=== PATIENT | female | born 1965 | race Two or more races ===

== ENCOUNTER → 2020-03-30 15:01 | Outpatient (BNVA) | payer MEDICAID, SELFPAY | PROVIDERS: PCP Internal Medicine; Visit Provider Nurse Practitioner Family ==

== ENCOUNTER → 2020-05-13 09:17 | Outpatient (BNVA) | payer MEDICAID, SELFPAY | PROVIDERS: PCP Internal Medicine; Visit Provider Internal Medicine Cardiovascular Disease | DX: R00.2 Palpitations (principal); R07.2 Precordial pain | CPT/HCPCS: 93005; 99212 ==

== ENCOUNTER 2020-05-17 06:24 | Day surgery (SDC) | payer MEDICAID, SELFPAY ==
[2020-05-17 06:44] VITALS: BMI 21.9
[2020-05-17 07:08] VITALS: BMI 21.9
[2020-05-17 07:19] VITALS: BP 117/78; PULSE 72; RESP 16; TEMP 36.3; O2SAT 94
--- NOTE | 2020-05-17 07:19 | P.CONAN_ITS ---
FORMERLY [facility] Active Problems Active Problems: All Active Problems (Updated 05/13/20 @ 10:18 by Horacio sharif MD) Chest pain (Acute) Palpitations (Acute) Past Medical History Medical History GERD (gastroesophageal reflux disease) Hypothyroidism (acquired) Family History Family History Mother HX: breast cancer Father Hx of malignant neoplasm of nasal cavity Sister No problems noted. Surgical History Surgical History Hx of appendectomy Hx of hysterectomy Social History Social History Household Members: Spouse Alcohol intake: current Alcohol intake frequency: holidays/special occasions only Smoking Status: Current every day smoker Tobacco Type: Cigarette Packs Per Day: 0.25 Cigarettes Per Day: 5.0 Years Smoked: 27 Smoked in Last 30 Days: Yes Patient Interested in Nicotine Replacement: No Patient Given Instructions on How to Stop Smoking: No Second Hand Smoke Exposure: Yes Use of substances other than those prescribed or required for medical reasons: Yes Substance Use Type: Marijuana Advance Directives: No Advance Directives Information Provided: Yes Current occupational status: disabled Meds Allergies Allergy/AdvReac Type Severity Reaction Status Date / Time aspirin [ASPIRIN] Allergy Unknown SWELLING, Unverified 03/30/20 15:03 rash, swelling ibuprofen Allergy Unknown swelling Verified 03/30/20 15:03 Home Medications Medication Instructions Recorded Confirmed Last Taken Type acetaminophen 650 mg 650 mg PO Q8H 03/30/20 03/30/20 Unknown History tablet,extended release citalopram 10 mg tablet 10 mg PO DAILY 03/30/20 03/30/20 Unknown History cyclobenzaprine 10 mg tablet 10 mg PO TID 03/30/20 03/30/20 Unknown History levothyroxine 25 mcg capsule 25 mcg PO DAILY 03/30/20 03/30/20 Unknown History mirtazapine 45 mg tablet 45 mg PO BEDTIME 03/30/20 03/30/20 Unknown History pantoprazole 20 mg tablet,delayed 20 mg PO DAILY 03/30/20 03/30/20 Unknown History release quetiapine 50 mg tablet 50 mg PO BEDTIME 03/30/20 03/30/20 Unknown History Exam Exam Date and Time: May 17, 2020718 Height,Weight and Vital Signs: Height 5 ft 2 in Weight 54.431 kg Airway Mallampati Class: II TM Dist: >3cm Neck ROM: Full Denture: Upper and Lower Loose/Missing/Broken Teeth: Yes, Upper and Lower Heart: RRR Lungs: CTA Assessment and Plan Assessment Anesthesia Assessment: Anesthesia Plan Discussed and Chart Reviewed Final Anesthetic Review NPO: Yes ASA Class: II Final Preanesthetic Review: Meds/Allgs Chart Reviewed, Consent Obtained/Reviewed and Anes Risks/Benef Reviewed Patient Risk: Low Procedure Risk: Low Anesthetic Plan Anesthetic Plan: MAC: Disposition: Standard PACU
--- NOTE | 2020-05-17 07:24 | P.HPSUR_ITS ---
Pre-Procedural Eval Section A The patient is an INPATIENT: No The History & Physical has been completed within 30 days and I have reviewed it.: No Section B Chief Complaint: Screening Details of Present Illness: 54 year old female here today for pre colonoscopy screening. Patient was sent to us by her PCP. This is her first colonoscopy screening. Patient denies any gastrointestinal symptoms in the past or at present. Denies any personal or family history of gastrointestinal disease, colon polyps, or cancer. Relevant Social History: Other (specify) (Smokes marijuana) Present Medications: see Short Stay Collaborative assessment Medical History: Significant History (GERD (gastroesophageal reflux disease) Hypothyroidism (acquired)) History of Previous Operations: Relevant previous surgery/procedure and date(s) (History of appendicectomy, history of hysterectomy.) Allergies: Allergies Allergy/AdvReac Type Severity Reaction Status Date / Time aspirin [ASPIRIN] Allergy Unknown SWELLING, Unverified 03/30/20 15:03 rash, swelling ibuprofen Allergy Unknown swelling Verified 03/30/20 15:03 Review of Systems Sugical H&P ROS: Negative: Constitution, Cardiovascular, Respiratory and Gastroi ntestinal Exam Surgical H&P Exam: Normal: Heart, Normal: Lungs, Normal: Extremities and Normal: Abdomen Plan Diagnosis/Plan: Unchanged I have reviewed the history and physical and performed a pertinent physical examination on my patient. No changes have occurred unless specified.
--- NOTE | 2020-05-17 07:24 | P.OP_ITS ---
Operative Note Operative Note Date of Service: 05/21/20 Narrative: Pre-op diagnosis: colon cancer screening Post-op diagnosis: other (Colon polyps, diverticulosis, hemorrhoids, AVM) Procedure: COLONOSCOPY TILL CECUM WITH SNARE POLYPECTOMY Consent: Indications for the procedure and potential complications of bleeding, perforation, reaction to medications and missed diagnosis were discussed with the patient and informed consent was obtained. Instrument: Olympus PCF H 190 L variable stiffness pediatric colonoscope Monitoring: Vital signs and clinical assessment, intermittent blood pressure monitoring, continuous EKG monitoring, Pulse oximetry and Carbon Dioxide monitoring were done throughout the procedure. Colon withdrawl time was 27 minutes. Procedure: The patient was placed in the left lateral decubitis position and pre-procedure medications were administered. After a digital rectal examination of the ano-rectum, the video colonoscope was inserted into the rectum and advanced through the colon to the cecum. The colonoscope was slowly withdrawn in a retrograde panoramic fashion and the colon mucosa was carefully examined including a retroflexed view of the rectum. Findings and interventions are described below. Procedure Difficulty: Without difficulty Findings: Terminal Ileum: Not evaluated Cecum: Normal Ascending Colon: A 1 cms non-bleeding AVM in the proximal AC. Transverse Colon: A 10 mm sessile polyp removed with a cold snare. A 5-6 mm sessile polyp removed with a cold snare. Descending Colon: Normal Sigmoid Colon: Moderate diverticulosis Rectum: Normal Ano-rectum: Small internal hemorrhoids and perianal skin tags. Colon preparation: Good after copious irrigation Impression and Post Procedure Diagnosis: Colonoscopy Findings: Two 5-10 mm polyps removed Moderate diverticulosis seen in the sigmoid colon Small hemorrhoids on retroflexed exam. Plan: Await pathology results Patient has an appointment on 06/07/20 in the [facility] with Jenifer Hammer FNP- [facility]. Repeat Colonoscopy interval based on path results - in 3-5 years if polyps are adenomatous and 10 years if polyps are hyperplastic. Above findings were reviewed with the patient and colon polyps and dive rticulosis handouts were given in the discharge area Surgeon: Jacob Sharif MD Anesthesia: MAC (Dr Echeverria) Estimated blood loss (mL): 0 Pathology: other (A. TC polyps x 2) Condition: stable Disposition: PACU
[2020-05-17] MEDS: Lactated Ringers 1,000 ML 50 ML IV (07:43)
[2020-05-17 08:30] VITALS: BP 127/78; PULSE 79; RESP 18; TEMP 35.9; O2SAT 98
[2020-05-17 08:45] VITALS: BP 139/76; PULSE 74; RESP 16; O2SAT 96
--- NOTE | 2020-05-17 08:58 | PC.NURSE ---
[id number] MONITORS AND IVF DC ASST OOB STEADY IV DC DRESSED SELF AT BS CALL [facility] IN REACH PLAN AMB TO DC AREA
== END 2020-05-17 09:32 | disposition home or self-care (01) ==
PROVIDERS: PCP Internal Medicine; Visit Provider Internal Medicine Gastroenterology
PROC: 0DJD8ZZ Inspection of Lower Intestinal Tract, Via Natural or Artificial Opening Endoscopic (ICD-10-PCS; CPT 45378; principal; 2020-05-17 07:30)
DX: Z12.11 Encounter for screening for malignant neoplasm of colon (principal); D12.3 Benign neoplasm of transverse colon; K57.30 Diverticulosis of large intestine without perforation or abscess without bleeding; K55.20 Angiodysplasia of colon without hemorrhage; K64.8 Other hemorrhoids; K64.4 Residual hemorrhoidal skin tags; K21.9 Gastro-esophageal reflux disease without esophagitis; F17.210 Nicotine dependence, cigarettes, uncomplicated; Z79.899 Other long term (current) drug therapy; Z88.8 Allergy status to other drugs, medicaments and biological substances
CPT/HCPCS: 45385; 88305

== ENCOUNTER → 2020-05-24 14:39 | Outpatient (REF) | payer MEDICAID, SELFPAY ==
--- NOTE | 2020-05-24 11:45 | ECG_ITS ---
Hook-up date: 2020-05-24 15:09:00 Duration: 47:59:00 Test Indications: PALPITATIONS Medications: [id number] QRS complexes 8 Ventricular ectopics which represent <1 % of total QRS comp. 13 Supraventricular ectopics which represent <1 % of total QRS comp. * Paced QRS complexs which represent % of total QRS comp. VENTRICULAR ECTOPY 8 Isolated 0 Bigeminal Cycles 0 Couplets 0 Runs 0 Beats in Runs * Beats LONGEST at * BPM at :: -- * Beats FASTEST at * BPM at :: -- SUPRAVENTRICULAR ECTOPY 7 Isolated 0 Couplets 1 Runs 6 Beats in Runs 6 Beats LONGEST at 139 BPM at 02:50:05 2020-05-26 6 Beats FASTEST at 139 BPM at 02:50:05 2020-05-26 HEART RATES 55 MIN at 08:22:03 2020-05-26 89 AVG 163 MAX at 16:32:34 2020-05-24 LONGEST RR 1.1520 secs at 08:43:25 2020-05-26 S-T LEVELS Channel 1 - 128 mm at 15:09:00 2020-05-24 - 128 mm at 15:09:00 2020-05-24 Channel 2 - 128 mm at 15:09:00 2020-05-24 - 128 mm at 15:09:00 2020-05-24 Channel 3 - 128 mm at 03:42:81 -- - 128 mm at 03:42:81 Underlying rhythm is sinus; Average rate 89/min; About 28% of the time, rate >100min; Very rare PACs/PVCs; Some strips with artifact are likely sinus tachycardia; Baseline bundle branch block seems to resolve at slower heart rates; Patient did not report any symptoms in the diary Referred By: Horacio Mckeon Overread By: BRENDA FIGUEROA
== END ==
LOC: HO.CARD 14:39
PROVIDERS: PCP Internal Medicine; Visit Provider Internal Medicine Cardiovascular Disease
DX: R00.2 Palpitations (principal)
CPT/HCPCS: 93226

== ENCOUNTER → 2020-06-07 13:00 | Outpatient (BNVA) | payer MEDICAID, SELFPAY | PROVIDERS: PCP Internal Medicine; Visit Provider Nurse Practitioner Family ==

== ENCOUNTER 2021-12-30 08:06 | Outpatient (REF) | payer MEDICAID, SELFPAY ==
--- NOTE | ~2021-12-30 | MM_ITS ---
EXAMINATION: MM SCREENING DIGITAL BREAST TOMOSYNTHESIS, BILATERAL CLINICAL INFORMATION: Screening. Asymptomatic. The lifetime risk of breast cancer based on the Tyrer-Cuzick Model is 8.7%. COMPARISON: Mammography: September 04, 2019 and studies dating back to December 01, 2010 TECHNIQUE: Digital breast tomosynthesis is performed in both the craniocaudal and mediolateral oblique views along with computer-aided detection (CAD). Synthesized 2D images are generated from the tomosynthesis. FINDINGS: The breasts are heterogeneously dense, which may obscure small masses (ACR BI-RADS breast composition Category c). There are no significant masses, abnormal calcifications, or other abnormalities. MM/MM tomosynthesis screening BI IMPRESSION: No significant changes from prior exam. ASSESSMENT: BI-RADS 1: Negative RECOMMENDATION: Routine annual mammography screening. This patient's information was entered into a reminder system with a target due date for their next mammogram.
== END 2021-12-30 08:07 | disposition home or self-care (01) ==
LOC: HO.MAMMO 08:06
PROVIDERS: PCP Internal Medicine; Visit Provider Internal Medicine
DX: Z12.31 Encounter for screening mammogram for malignant neoplasm of breast (principal)
CPT/HCPCS: 77063; 77067

== ENCOUNTER 2022-08-11 15:01 | Outpatient (REF) | payer MEDICAID, SELFPAY ==
--- NOTE | ~2022-08-11 | XR_ITS ---
EXAMINATION: 1. RADIOGRAPHS LUMBAR SPINE 2. RADIOGRAPHS SACRUM/COCCYX CLINICAL INFORMATION: Low back pain COMPARISON: Sacrum/coccyx radiographs April 14, 2014 and lumbar spine x-rays April 23, 2012 TECHNIQUE: 3 views of the lumbar spine and 2 views of the sacrum/coccyx were obtained. FINDINGS: 5 nonrib-bearing lumbar vertebral bodies are visualized. Similar minimal anterolisthesis of L5 on S1. Alignment is otherwise unremarkable. Lumbar vertebral body heights are maintained. There is mild narrowing of the L4/5 and L5/S1 disc space heights. No gross fracture of the sacrum or coccyx. Sacroiliac joints are symmetric. The pelvic ring is intact. Small pelvic calcifications are likely vascular in nature. Surgical clips and anastomotic suture line project over the right lower abdomen. XR/XR sacrum coccyx min 2V IMPRESSION: 1. Mild degenerative changes of the lower lumbar spine. No compression deformity. 2. No fracture of the sacrum or coccyx.
--- NOTE | ~2022-08-11 | XR_ITS ---
EXAMINATION: 1. RADIOGRAPHS LUMBAR SPINE 2. RADIOGRAPHS SACRUM/COCCYX CLINICAL INFORMATION: Low back pain COMPARISON: Sacrum/coccyx radiographs April 14, 2014 and lumbar spine x-rays April 23, 2012 TECHNIQUE: 3 views of the lumbar spine and 2 views of the sacrum/coccyx were obtained. FINDINGS: 5 nonrib-bearing lumbar vertebral bodies are visualized. Similar minimal anterolisthesis of L5 on S1. Alignment is otherwise unremarkable. Lumbar vertebral body heights are maintained. There is mild narrowing of the L4/5 and L5/S1 disc space heights. No gross fracture of the sacrum or coccyx. Sacroiliac joints are symmetric. The pelvic ring is intact. Small pelvic calcifications are likely vascular in nature. Surgical clips and anastomotic suture line project over the right lower abdomen. XR/XR lumbar spine 2-3V IMPRESSION: 1. Mild degenerative changes of the lower lumbar spine. No compression deformity. 2. No fracture of the sacrum or coccyx.
--- NOTE | ~2022-08-11 | US_ITS ---
EXAMINATION: US SOFT TISSUE NECK CLINICAL INFORMATION: Left neck mass. COMPARISON: None available. TECHNIQUE: Ultrasound of the neck soft tissues is performed with high- frequency boudreaux-scale imaging and color Doppler. FINDINGS: THYROID BED: The left submandibular gland appears somewhat enlarged measuring 3.5 x 2.0 x 3.0 cm. There is ductal dilatation, without focal sialolith noted. There are left submandibular lymph nodes measuring 1.2 x 0.8 x 0.8 cm and 0.7 x 0.5 x 0.5 cm. No sizable lymphadenopathy is noted. US/US soft tiss head and/or neck IMPRESSION: The left submandibular gland is somewhat prominent and shows ductal dilatation. No sialolith or mass lesion is noted. Consider further evaluation with contrast-enhanced CT examination of the soft tissues of the neck. No sizable lymphadenopathy is seen.
== END 2022-08-11 15:02 | disposition home or self-care (01) ==
LOC: HO.US 15:01
PROVIDERS: Visit Provider Emergency Medicine
DX: R22.1 Localized swelling, mass and lump, neck (principal); M54.50 Low back pain, unspecified; Z87.81 Personal history of (healed) traumatic fracture
CPT/HCPCS: 72100; 72220; 76536

== ENCOUNTER 2022-10-03 09:56 | Outpatient (REF) | payer MEDICAID, SELFPAY ==
--- NOTE | ~2022-10-03 | CT_ITS ---
EXAMINATION: CT SOFT TISSUE NECK WITH CONTRAST CLINICAL INFORMATION: Localized swelling, mass and lump, neck COMPARISON: None. TECHNIQUE: Following the administration of 60 mL of Omnipaque 350 intravenous contrast, helical imaging was performed in the axial plane with generation of coronal and sagittal reformatted images. This CT examination was performed using dose optimization techniques as appropriate, variously including the following: *Automated exposure control. *Adjustment of mA and/or kV according to patient size (this includes techniques or standardized protocols for targeted exams where dose is matched to indication/reason for exam; i.e. extremities or head). *Use of iterative reconstruction technique. DLP: 501.21 mGy-cm FINDINGS: Metallic skin marker is noted superficial to the left submandibular gland. There is asymmetric enlargement and hyperenhancement of the left submandibular gland with suggestion of mild sialectasis and surrounding inflammatory fat stranding in the submandibular space. 5 mm hyperdensity in the left floor of mouth likely represents a sialolith along the submandibular duct. The left sublingual gland also appears mildly enlarged and hyperenhancing, likely reflecting sialoadenitis. Nasopharynx/skull base: The fat planes of the skull base are unremarkable. There is a 1.1 cm cyst within the midline nasopharyngeal soft tissues, compatible with a Tornwaldt cyst. The paranasal sinuses and mastoid air cells are well aerated. Left jessica bullosa.Moderate to severe degenerative changes of the temporomandibular joints. Suprahyoid neck: The oropharynx, oral cavity, and parotid glands are unremarkable. Infrahyoid neck: The hypopharynx and larynx are unremarkable. No aerodigestive tract mass. Thyroid: The thyroid gland is normal. Lymph nodes: There is no cervical chain lymphadenopathy. Lung apices: Mild pleural-parenchymal scarring at the lung apices. Mild bronchial wall thickening Vascular structures: No hemodynamically significant stenosis, dissection, or occlusion. Osseous structures: The osseous structures are intact without suspicious focal lesion. Other: The imaged portions of the brain parenchyma are unremarkable. CT/CT soft tissue neck w IV con IMPRESSION: 1. Findings compatible with left submandibular and sublingual gland sialoadenitis with 5 mm sialolith in the left floor of mouth. 2. 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 3. Moderate to severe degenerative changes of the temporomandibular joints.
[2022-10-03] MEDS: iohexoL 350 MG/ML 100 ML INFUS..BTL 60 ML IV (10:38)
[2022-10-04 11:12] LABS: Creatinine POC 0.9 mg/dL (0.5-1.4); GFR POC > 60
== END 2022-10-03 09:57 | disposition home or self-care (01) ==
LOC: HO.CT 09:56
PROVIDERS: PCP Emergency Medicine; Visit Provider Emergency Medicine
DX: R22.1 Localized swelling, mass and lump, neck (principal)
CPT/HCPCS: 70491; 82565; Q9967

== ENCOUNTER 2022-12-10 15:23 | Emergency (ER) | payer MEDICAID, SELFPAY ==
--- NOTE | ~2022-12-10 | CT_ITS ---
EXAMINATION: CT SOFT TISSUE NECK WITHOUT CONTRAST CLINICAL INFORMATION: Left submandibular/subglossal swelling COMPARISON: CT neck 10/03/2022 TECHNIQUE: Noncontrast helical imaging was performed in the axial plane with generation of coronal and sagittal reformatted images. This CT examination was performed using dose optimization techniques as appropriate, variously including the following: *Automated exposure control. *Adjustment of mA and/or kV according to patient size (this includes techniques or standardized protocols for targeted exams where dose is matched to indication/reason for exam; i.e. extremities or head). *Use of iterative reconstruction technique. DLP: 128 FINDINGS: Since 10/03/2022, progressive diffuse enlargement of the left submandibular gland with increased mass effect and flattening along the ventral margin of the subjacent left sternocleidomastoid muscle. Increased inflammatory stranding within the left greater than right submandibular triangles and submental region. Increased thickening of the left greater than right platysma muscles. New somewhat hazy appearance/mild infiltration of the left parapharyngeal fat. Unchanged 5 mm calcified sialolith along the left floor of mouth along the expected course of the left Lyla's duct. Redemonstrated enlargement of the left sublingual gland with likely increased effacement/edema of the left floor of mouth fat planes. Lack of postcontrast technique precludes assessment for floor of mouth abscess. There is asymmetric soft tissue fullness of the left palatine tonsillar tissue (image 38, series 2), which may reflect asymmetric tonsillar hyperplasia. Stable enlarged left level IIa lymph node measuring 1.3 cm in long axis and additional nonpathologic size criteria submandibular/submental lymph nodes.. 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 Left contrast bullosa. The paranasal sinuses and mastoid air cells are well aerated. 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 The unenhanced aerodigestive tract is unremarkable. No radiopaque foreign bodies identified. The unenhanced thyroid and bilateral parotid glands are normal. Mild biapical pleural-parenchymal scarring centrilobular/paraseptal emphysema with mild central bronchial wall thickening which may reflect small airways disease/bronchiolitis. Stable mild cervical spondylosis. No suspicious osseous lesion. The imaged portions of the brain parenchyma are unremarkable. CT/CT soft tissue neck wo IV con IMPRESSION: Within limitations of noncontrast technique, findings are suggestive of worsening acute left submandibular and sublingual gland sialoadenitis with 5 mm calcified sialolith along the left floor of mouth along the expected course of the left Croydon's duct. Increased inflammatory stranding/cellulitic changes throughout the neck, including new subtle infiltration of the left parapharyngeal fat. Increased left floor of mouth edema/cellulitis. Lack of postcontrast technique precludes assessment for floor of mouth abscess. Stable presumably reactive left level 2A lymph node and additional nonpathologic size criteria submandibular/submental lymph nodes. Findings were discussed with Dr Al at 6:00 PM on 12/10/2022.
--- NOTE | 2022-12-10 15:44 | ED_ITS ---
HPI - General Adult General Chief complaint: Dental/Oral Stated complaint: surgery 12/04 mouth pain Time Seen by Provider: 12/10/22 16:15 Source: patient Mode of arrival: ambulatory Limitations: no limitations History of Present Illness HPI narrative: 57 yo female with PMH of GERD, anxiety, depression, hypothyroidism here with c/o L sided facial pain and swelling x 3 months has been seeing ENT at [facility] was scheduled for removal on 12/04 but it was canceled due to COVID exposure. She came in today as she c/o more pain since Sunday. She notes the swelling on the jaw seems worse but not the neck. She states she has to call tomorrow to reschedule appointment she has not done that yet. MD complaint: jaw pain Onset (ago): month(s) (3) Location: mouth Radiation: non-radiation Severity: moderate Related Data Home Medications Medication Instructions Recorded Confirmed acetaminophen 650 mg 650 mg PO Q8H 03/30/20 03/30/20 tablet,extended release (Arthritis Pain Relief (acetaminophen) ER) citalopram 10 mg tablet 10 mg PO DAILY 03/30/20 03/30/20 cyclobenzaprine 10 mg tablet 10 mg PO TID 03/30/20 03/30/20 levothyroxine 25 mcg capsule 25 mcg PO DAILY 03/30/20 03/30/20 mirtazapine 45 mg tablet 45 mg PO BEDTIME 03/30/20 03/30/20 pantoprazole 20 mg tablet,delayed 20 mg PO DAILY 03/30/20 03/30/20 release quetiapine 50 mg tablet (Seroquel) 50 mg PO BEDTIME 03/30/20 03/30/20 Previous Rx's Medication Instructions Recorded amoxicillin 875 mg-potassium 1 tab PO BID #14 tabs 12/10/22 clavulanate 125 mg tablet morphine 15 mg immediate release 15 mg PO Q6H PRN pain #14 tabs 12/10/22 tablet Allergies Allergy/AdvReac Type Severity Reaction Status Date / Time aspirin [ASPIRIN] Allergy Mild SWELLING, Verified 12/10/22 15:50 rash, swelling Review of Systems 2 Review of Systems: Constitutional : No Fever, No Chills ENT/Mouth : No swallowing difficulty, no change in voice, positive dental pain, positive jaw pain, positive facial swelling Eyes: No Eye Pain, No Swelling Cardiovascular : No Chest Pain, No SOB Respiratory : No Cough, No Sputum Gastrointestinal : No Nausea, No Vomiting, No Diarrhea Genitourinary : No Dysuria Musculoskeletal : No Myalgias Skin : No rash Neuro : No Weakness, No Numbness, No Headache All other systems reviewed and are negative [facility] Past Medical History Medical History (Updated 12/10/22 @ 18:56 by Priya Jarvis DO) Tubular adenoma Hypothyroidism (acquired) GERD (gastroesophageal reflux disease) Surgical History (Updated 06/07/20 @ 13:04 by KARLA Joy) H/O colonoscopy Hx of appendectomy Hx of hysterectomy Family History Family History Mother HX: breast cancer Father Hx of malignant neoplasm of nasal cavity Sister No problems noted. Social History Social History (Updated 06/07/20 @ 13:05 by KARLA Joy) Household Members: Spouse Alcohol intake: current Alcohol intake frequency: does not drink Cigarettes Per Day: 7 Years Smoked: 27 Second Hand Smoke Exposure: Yes Substance Use Type: Marijuana Advance Directives: No Advance Directives Information Provided: No Current occupational status: disabled Physical Exam ED Vital Signs: Vital Signs - 24 hr 12/10/22 15:47 Temperature 98 F Pulse Rate 91 Respiratory Rate 20 Blood Pressure 132/80 Pulse Oximetry 99 Oxygen Delivery Method Room Air BMI result Body Mass Index 21.6 Appearance: Alert. Oriented X3. No acute distress. Eyes: Pupils equal, round and reactive to light. ENT: Pharynx L sided parotid and sublingual area is swollen and elevated but no trismus and no drooling or stridor, L parotid is swollen but no external erythema or warmth, firm ball submandibular area (she states this has been present x 3 months) Neck: Normal inspection. Neck supple. CVS: Normal heart rate and rhythm. Pulses normal. Respiratory: No respiratory distress. Breath sounds normal. Abdomen: Soft and nontender. Skin: Skin warm and dry. Normal skin color. Normal skin turgor. Extremities: No lower extremity edema. No calf ttp Neuro: Oriented X 3. No motor deficit. No sensory deficit. Course Course Course Narrative: RME - 57 yo Dominican speaking female who was due to left submandibular gland removal on 12/04 at [facility] (never did due to COVID exposure) who presents with worsening pain in the left submandibular area, subglossal area making it hard to eat, sleep. Has never been this painful, acutely worsened yesterday with increased swelling. Tearful in triage. Visible swelling in the left submandibular area. Plan: labs, CT scan, treat pain, try to get records from [facility] Reevaluation(s) Reevaluation #1: worsening sialoadenitis increasing edema in neck spaces and cellulitis Medications Administered Discontinued Medications Generic Name Dose Route Start Last Admin Trade Name Calli PRN Reason Stop Dose Admin Piperacillin Sod/Tazobactam 50 mls @ 100 mls/hr 12/10/22 18:17 12/10/22 18:29 Sod 3.375 gm/ Sodium Chloride IV 12/10/22 18:46 100 mls/hr ONCE ONE Administration Lorazepam 1 mg 12/10/22 17:11 12/10/22 17:16 Lorazepam 1 Mg Tablet PO 12/10/22 17:12 1 mg ONCE ONE Administration Morphine Sulfate 4 mg 12/10/22 15:47 12/10/22 16:47 Morphine Sulfate 4 Mg/Ml Cartridge IVPUSH 12/10/22 15:48 Not Given ONCE ONE Protocol Morphine Sulfate 15 mg 12/10/22 16:34 12/10/22 16:46 Morphine Sulfate Immed Release 15 Mg Tablet PO 12/10/22 16:35 15 mg ONCE ONE Administration Morphine Sulfate 4 mg 12/10/22 18:02 12/10/22 18:21 Morphine Sulfate 4 Mg/Ml Cartridge IVPUSH 12/10/22 18:03 4 mg ONCE ONE Administration Protocol Ondansetron HCl 4 mg 12/10/22 15:47 12/10/22 16:47 Ondansetron Hcl 4 Mg/2 Ml Vial IVPUSH 12/10/22 15:48 Not Given ONCE ONE Ondansetron HCl 4 mg 12/10/22 18:02 12/10/22 18:21 Ondansetron Hcl 4 Mg/2 Ml Vial IVPUSH 12/10/22 18:03 4 mg ONCE ONE Administration Medical Decision Making Medical Decision Making MDM Narrative: 57 yo female with PMH of GERD, anxiety, depression, hypothyroidism with 3 months of L neck mass finally to have surgery at [facility] on 12/04 but had COVID exposure so it was canceled she has not rescheduled she comes today with c/o L sided jaw pain and feels it is swollen at the jaw (neck and submandibular space is not change) she tells me she has not had a biopsy yet. She is not on antibiotics and she cannot take the pain anymore. She is not using anything to produce saliva. She has no fevers, change in voice, diff breathing. At times it hurts to swallow. Differential Diagnosis Differential Diagnoses: The differential diagnosis associated with the presentation includes mass, sialoadenitis Admission/Observation Consideration of admission/observation: Escalation of care including admission/observation considered no airway issues not toxic can be managed with outpatient oral antibiotics and pain medications Consult Healthcare Provider Management of the patient was discussed with: Director Sports (Dr. Beck massage posterior to anterior follow up with disc tomorrow 1045 am) Lab Data MDM Lab Attestation statement: I reviewed the patient's lab results. 12/10/22 15:53 12/10/22 15:53 Labs: Lab Results 12/10/22 12/10/22 Range/Units 15:53 18:09 WBC 11.3 H (4.8-10.8) X10*3/uL RBC 4.50 (4.20-5.50) X10*6/uL Hgb 13.5 (12.0-16.0) g/dl Hct 39.2 (37.0-47.0) % MCV 87.1 (80.0-98.0) fL MCH 30.0 (27.0-33.0) pg MCHC 34.4 (31.0-35.0) g/dl RDW 13.6 (11.0-16.0) % Plt Count 365 (160-400) X10*3/uL MPV 9.6 (9.4-12.3) fL Immature Gran % (Auto) 0.4 (0.0-0.4) % Neut % (Auto) 62.2 (45-73) % Lymph % (Auto) 29.2 (20-40) % [place] % (Auto) 6.5 (2-11) % Eos % (Auto) 1.0 (0-4) % Baso % (Auto) 0.7 (0-2) % Lymph # (Auto) 3.3 (1.2-4.9) X10*3/uL [place] # (Auto) 0.7 (0.1-1.2) X10*3/uL Eos # (Auto) 0.1 (0.0-0.4) X10*3/uL Baso # (Auto) 0.1 (0.0-0.2) X10*3/uL Abs Immat Gran (auto) 0.04 H (0.00-0.03) X10*3/uL Absolute Neuts (auto) 7.0 (2.0-8.3) x10*3/uL Absolute Nucleated RBC 0.000 (0.0-0.012) X10*3/uL Nucleated RBC % (auto) 0.0 (0.0-0.2) /100WBC Sodium 139 (135-145) mmol/L Potassium 4.2 (3.3-5.1) mmol/L Chloride 104 (96-108) mmol/L Carbon Dioxide 22 (22-29) mmol/L Anion Gap 17 (12-20) BUN 9 (9-16) mg/dL Creatinine 0.75 (0.5-1.4) mg/dL Estim Creat Clear Calc 65.5 Estimated GFR > 60 Random Glucose 98 (60-115) mg/dL Calcium 10.6 H (8.4-10.2) mg/dL Magnesium 2.0 (1.6-2.6) mg/dL Total Bilirubin 0.6 (0.0-1.0) mg/dL Direct Bilirubin 0.2 (0.0-0.5) mg/dL AST 12 (5-31) U/L ALT 8 (0-31) U/L Alkaline Phosphatase 95 (39-117) U/L Total Protein 8.2 H (6.5-8.0) g/dL Albumin 4.6 (3.5-5.0) g/dL COVID-19 (CELE) Negative (Negative) COVID-19 Clin Com See Note Independent Interpretation I performed an independent interpretation of an: CT Scan Radiology Impression Discussion of test interpretation with radiology: I discussed test interpretation with the radiologist and I have reviewed the radiologist's reading. 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 take the pain medications as needed. you have an appointment tomorrow [address] in [place] [address] Morris please do not miss it. Go fill your prescriptions. return for increased difficulty breathing or inability to swallow. masajee el ?nelsy de atr?s hacia adelante. tome los analg?sicos seg?n sea necesario. Tiene jose suyapa ma?lynette a las [address] en [place] con el Dr[address] Morris, no se lo pierda. Vaya a surtir roberto recetas. Regrese si tiene mayor dificultad para respirar o incapacidad para tragar. Prescriptions: New amoxicillin-pot clavulanate 875-125 mg tablet 1 tab PO BID Qty: 14 0RF morphine 15 mg tablet 15 mg PO Q6H PRN (Reason: pain) Qty: 14 0RF Rx Instructions: Partial Fill upon patient request. No Action quetiapine [Seroquel] 50 mg tablet 50 mg PO BEDTIME mirtazapine 45 mg tablet 45 mg PO BEDTIME citalopram 10 mg tablet 10 mg PO DAILY pantoprazole 20 mg tablet,delayed release (DR/EC) 20 mg PO DAILY cyclobenzaprine 10 mg tablet 10 mg PO TID acetaminophen [Arthritis Pain Relief (acetam)] 650 mg tablet extended release 650 mg PO Q8H levothyroxine 25 mcg capsule 25 mcg PO DAILY Print Language: Dominican
[2022-12-10 15:47] VITALS: BP 132/80; PULSE 91; RESP 20; TEMP 36.6; O2SAT 99; BMI 21.6
[2022-12-10 15:57] LABS: MANUAL DIFF FLAG NO
[2022-12-10 15:59] LABS: Basophils Absolute Auto 0.1 X10*3/uL (0.0-0.2); Basophils Percent Auto 0.7 % (0-2); Eosinophils Absolute Auto 0.1 X10*3/uL (0.0-0.4); Hematocrit 39.2 % (37.0-47.0); Hemoglobin 13.5 g/dl (12.0-16.0); Imm Gran Abs Auto 0.04 X10*3/uL (0.00-0.03); Imm Gran Pct Auto 0.4 % (0.0-0.4); Lymphocytes Absolute Auto 3.3 X10*3/uL (1.2-4.9); Lymphocytes Percent Auto 29.2 % (20-40); Mean Corpuscular HGB Conc 34.4 g/dl (31.0-35.0); Mean Corpuscular Volume 87.1 fL (80.0-98.0); Mean Platelet Volume 9.6 fL (9.4-12.3); Monocytes Absolute Auto 0.7 X10*3/uL (0.1-1.2); Monocytes Percent Auto 6.5 % (2-11); Neutrophils Percent Auto 62.2 % (45-73); Platelet Count 365 X10*3/uL (160-400); Red Cell Distribution Width 13.6 % (11.0-16.0); White Blood Count 11.3 X10*3/uL (4.8-10.8)
[2022-12-10 16:15] LABS: Alanine Aminotransferase 8 U/L (0-31); Albumin Level 4.6 g/dL (3.5-5.0); Alkaline Phosphatase 95 U/L (39-117); Anion Gap 17 (12-20); Aspartate Amino Transferase 12 U/L (5-31); Bilirubin Direct 0.2 mg/dL (0.0-0.5); Bilirubin Total 0.6 mg/dL (0.0-1.0); Blood Urea Nitrogen 9 mg/dL (9-16); Calcium 10.6 mg/dL (8.4-10.2); Carbon Dioxide 22 mmol/L (22-29); Chloride 104 mmol/L (96-108); Creatinine Clr Calc Pharmacy 65.5; Estimated Glomerular Filt Rate > 60; Glucose Random 98 mg/dL (60-115); Potassium 4.2 mmol/L (3.3-5.1); Sodium 139 mmol/L (135-145); Total Protein 8.2 g/dL (6.5-8.0)
[2022-12-10] MEDS: Morphine Sulfate Immed Release 15 MG TABLET PO (16:46)
[2022-12-10] MEDS: LORazepam 1 MG TABLET PO (17:16)
--- NOTE | 2022-12-10 17:53 | PC.NURSE ---
alert and oriented, respirations even and unlabored. pt awaiting results from CT scan, medicated per the MAR.
[2022-12-10] MEDS: ondansetron HCL 4 MG/2 ML VIAL IVPUSH (18:21)
[2022-12-10] MEDS: Morphine Sulfate 4 MG/ML CARTRIDGE IVPUSH (18:21)
[2022-12-10 18:28] LABS: COVID-19 Test Negative (Negative); IDNOW Serial# 08D9AD1C
[2022-12-10] MEDS: Piperacillin Sodium/Tazobactam 3.375 GM in 0.9 % Sodium Chloride 50 ML IV (18:29)
--- NOTE | 2022-12-10 18:32 | PC.NURSE ---
patient resting in bed, respirations equal and unlabored. patient managing own secretions and airway. per MD started on IV antibiotics, medicated per MAY
--- NOTE | 2022-12-10 18:47 | PC.NURSE ---
per pt has ENT surgery appt tomorrow morning at 1045 at [address] [facility]
== END 2022-12-10 20:01 | disposition home or self-care (01) ==
PROVIDERS: Physician Assistant; Emergency Provider Emergency Medicine
DX: K11.21 Acute sialoadenitis (principal); R51.9 Headache, unspecified; M54.2 Cervicalgia; F17.210 Nicotine dependence, cigarettes, uncomplicated; Z20.822 Contact with and (suspected) exposure to COVID-19; Z20.828 Contact with and (suspected) exposure to other viral communicable diseases; Z79.899 Other long term (current) drug therapy; Z71.6 Tobacco abuse counseling
CPT/HCPCS: 36415; 70490; 80048; 80076; 83735; 85025; 87635; 96365; 96375; 96376; 99283; 99284; J2270; J2405; J2543

== ENCOUNTER 2023-03-31 19:50 | Emergency (ER) | payer MEDICAID, SELFPAY ==
--- NOTE | 2023-03-31 | ECG_ITS ---
Test Reason : CP Blood Pressure : / mmHG Vent. Rate : 069 BPM Atrial Rate : 069 BPM P-R Int : 164 ms QRS Dur : 130 ms QT Int : 410 ms P-R-T Axes : 060 020 079 degrees QTc Int : 439 ms Normal sinus rhythm Left bundle branch block Abnormal ECG No significant changes when compared with the previous EKG of 05 july 2016 Referred By: Generic ED Physician Electronically Signed By:BRENDA FIGUEROA
--- NOTE | ~2023-03-31 | XR_ITS ---
EXAMINATION: XR CHEST CLINICAL INFORMATION: Chest pain. COMPARISON: 06/27/2016. TECHNIQUE: Frontal view of the chest was obtained. FINDINGS: No significant abnormality is noted involving the heart, lungs, mediastinum, bony thorax or soft tissues. XR/XR chest 1V IMPRESSION: Unremarkable examination.
[2023-03-31 20:05] VITALS: BP 138/80; PULSE 75; RESP 17; TEMP 36.9; O2SAT 97; BMI 23.2
[2023-03-31 20:05] LABS: MANUAL DIFF FLAG NO
[2023-03-31 20:06] LABS: Basophils Absolute Auto 0.1 X10*3/uL (0.0-0.2); Basophils Percent Auto 0.9 % (0-2); Eosinophils Absolute Auto 0.3 X10*3/uL (0.0-0.4); Eosinophils Percent Auto 3.5 % (0-4); Hematocrit 40.5 % (37.0-47.0); Hemoglobin 13.5 g/dl (12.0-16.0); Imm Gran Abs Auto 0.03 X10*3/uL (0.00-0.03); Imm Gran Pct Auto 0.3 % (0.0-0.4); Lymphocytes Absolute Auto 2.7 X10*3/uL (1.2-4.9); Lymphocytes Percent Auto 30.6 % (20-40); Mean Corpuscular HGB Conc 33.3 g/dl (31.0-35.0); Mean Corpuscular Hemoglobin 29.1 pg (27.0-33.0); Mean Corpuscular Volume 87.3 fL (80.0-98.0); Mean Platelet Volume 9.8 fL (9.4-12.3); Monocytes Absolute Auto 0.5 X10*3/uL (0.1-1.2); Monocytes Percent Auto 5.4 % (2-11); Neutrophils Absolute Auto 5.3 x10*3/uL (2.0-8.3); Neutrophils Percent Auto 59.3 % (45-73); Platelet Count 337 X10*3/uL (160-400); Red Blood Count 4.64 X10*6/uL (4.20-5.50); Red Cell Distribution Width 14.4 % (11.0-16.0); White Blood Count 8.9 X10*3/uL (4.8-10.8)
[2023-03-31 20:22] LABS: Alanine Aminotransferase 13 U/L (0-31); Albumin Level 4.4 g/dL (3.5-5.0); Alkaline Phosphatase 88 U/L (39-117); Anion Gap 13 (12-20); Aspartate Amino Transferase 15 U/L (5-31); Bilirubin Direct < 0.2 mg/dL (0.0-0.5); Bilirubin Total 0.2 mg/dL (0.0-1.0); Blood Urea Nitrogen 11 mg/dL (9-16); Calcium 9.8 mg/dL (8.4-10.2); Carbon Dioxide 26 mmol/L (22-29); Chloride 105 mmol/L (96-108); Creatinine Clr Calc Pharmacy 59.1; Estimated Glomerular Filt Rate > 60; Glucose Random 99 mg/dL (60-115); Lipase 21 U/L (8-78); Potassium 4.1 mmol/L (3.3-5.1); Sodium 140 mmol/L (135-145); Total Protein 7.8 g/dL (6.5-8.0)
--- NOTE | 2023-03-31 20:28 | PC.NURSE ---
industrial paramedic at bedside. pt from home reporting intermittent lower left sided chest pain that radiates into the abdomen. pt reports the pain worsens with movement and when touched. pt denies n/v/d. denies sob. pt a&o4, respirations even and unlabored. 20G placed in the right AC.
[2023-03-31 20:29] LABS: Troponin-I High Sensitivity < 2.7 ng/L (<3.5-17.0)
[2023-03-31 20:30] VITALS: BP 151/88; PULSE 72; RESP 14; TEMP 36.7; O2SAT 99
[2023-03-31 20:46] LABS: Appearance Urine Clear; Color Urine Yellow; Glucose Urine UA Negative (Negative); Leukocyte Esterase Urine Negative (Negative); Nitrite Urine Negative (Negative); PH 6.5 (5.0-9.0); Urine Blood Negative (Negative); Urine Ketones Negative (Negative); Urine Protein Negative (Neg-Trace)
--- NOTE | 2023-03-31 22:48 | ED_ITS ---
HPI - Chest Pain General Chief Complaint: Chest Pain Stated Complaint: chest pain Time Seen by Provider: 03/31/23 20:21 History of Present Illness HPI narrative: Patient is a 57-year-old female presents today with having chest pain for the last 3 days. The pain is dull in nature. It is over the left chest. Not associated with any diaphoresis. Patient denies any fever chills. Patient stated the chest pain started after she moved the wrong way. Stated that she has seen a travel counselor in the past. Question question clogged artery. Has not seen a travel counselor since 2021. No fever no chills. No diaphoresis. Not associated with any leg swelling. Not associated with any shortness of breath. No diaphoresis. The pain has been constant all day. She has no history of diabetes. No history of blood pressure. Positive history of smoking quit 5 months ago. Never had a heart attack. Never had a stroke. Related Data Home Medications Medication Instructions Recorded Confirmed acetaminophen 650 mg 650 mg PO Q8H 03/30/20 03/30/20 tablet,extended release (Arthritis Pain Relief (acetaminophen) ER) citalopram 10 mg tablet 10 mg PO DAILY 03/30/20 03/30/20 cyclobenzaprine 10 mg tablet 10 mg PO TID 03/30/20 03/30/20 levothyroxine 25 mcg capsule 25 mcg PO DAILY 03/30/20 03/30/20 mirtazapine 45 mg tablet 45 mg PO BEDTIME 03/30/20 03/30/20 pantoprazole 20 mg tablet,delayed 20 mg PO DAILY 03/30/20 03/30/20 release quetiapine 50 mg tablet (Seroquel) 50 mg PO BEDTIME 03/30/20 03/30/20 Previous Rx's Medication Instructions Recorded amoxicillin 875 mg-potassium 1 tab PO BID #14 tabs 12/10/22 clavulanate 125 mg tablet morphine 15 mg immediate release 15 mg PO Q6H PRN pain #14 tabs 12/10/22 tablet Allergies Allergy/AdvReac Type Severity Reaction Status Date / Time aspirin [ASPIRIN] Allergy Mild SWELLING, Verified 12/10/22 15:50 rash, swelling Review of Systems 2 Review of Systems: No fever no chills no diaphoresis Yes all other systems are reviewed and are negative [facility] Past Medical History Attestation statement: The following information was validated with the patient. Onset Date is defined in the Problem List Problems that require an onset date and time if occurred within 24 hrs of arrival to the ED Aortic Dissection and Rupture; Neurologic impairment; Cardiopulmonary Arrest; Endotracheal Intubation; Insertion or Replacement of Mechanical Circulatory Assist Device Medical History Tubular adenoma Hypothyroidism (acquired) GERD (gastroesophageal reflux disease) Surgical History H/O colonoscopy Hx of appendectomy Hx of hysterectomy Family History Family History Mother HX: breast cancer Father Hx of malignant neoplasm of nasal cavity Sister No problems noted. Social History Social History Household Members: Spouse Alcohol intake: current Alcohol intake frequency: does not drink Cigarettes Per Day: 7 Years Smoked: 27 Smoked in Last 30 Days: No Second Hand Smoke Exposure: Yes Use of substances other than those prescribed or required for medical reasons: No Substance Use Type: Marijuana Advance Directives: No Advance Directives Information Provided: No Current occupational status: disabled Physical Exam 2 Vital Signs: Vital Signs: Last Vital Signs Temp 98.1 F 03/31/23 20:30 Pulse 72 03/31/23 20:30 Resp 14 03/31/23 20:30 BP 151/88 H 03/31/23 20:30 Pulse Ox 99 03/31/23 20:30 O2 Del Method Room Air 03/31/23 20:30 BMI result Body Mass Index 23.2 Appearance: Alert. Oriented X3. No acute distress. Eyes: Pupils equal, round and reactive to light. ENT: Pharynx normal. Neck: Normal inspection. Neck supple. No lymph nodes noted. No crepitus CVS: Normal heart rate and rhythm. Pulses normal. Normal S1 and S2 Respiratory: No respiratory distress. Breath sounds normal. No Wheezing. No rales Abdomen: Soft and nontender. No rigidity. No distention. good BS x4 Skin: Skin warm and dry. Normal skin color. Normal skin turgor. Extremities: No lower extremity edema. Neurovascular intact to all extremities. No Lacerations. No Rash Neuro: Oriented X 3. No motor deficit. No sensory deficit. Moving all extermities. No slurred speech Medical Decision Making Medical Decision Making [facility] Narrative: My interpretation of patient's EKG showed a sinus rhythm heart rate is 70 there is a left bundle branch block noted this EKG is unchanged when compared to an EKG from back in 2020. Patient's chest pain is atypical has been constant it has been sharp it has been there all day will get 2 sets of enzymes. The 1st set was negative. Will get an x-ray to look for pneumonia pneumothorax. Patient has no huge risk factors for PE. Nevertheless a D-dimer was ordered. As patient has sharp chest pain. Patient old chart reviewed. Patient's cardiology records reviewed. Per Cardiology the following was noted. 54-year-old female here for follow-up. She was seen for chest discomfort and left bundle-branch block. Nuclear perfusion study showed perfusion defects which were thought to be due to left bundle-branch block. Given ongoing symptoms she underwent coronary CTA which did not show any significant coronary disease.She returns for follow-up. She continues to smoke approximately 4-5 cigarettes a day. She is complaining of palpitations which happen 2 to 3 times a week. She also has left-sided sharp chest pain which happens randomly when she is walking around and doing household coordinator. Chest pain is reproducible on the chest wall. Less likely this is secondary to ACS as patient had clean coronary 2 years ago. Patient heart enzyme was negative well-appearing no distress. D-dimer less than 150 no evidence for PE in the setting of low risk Differential Diagnosis Differential Diagnoses: The differential diagnosis associated with the presentation includes ACS pneumonia thorax, rib fracture, PE Lab Data [facility] Lab Attestation statement: I reviewed the patient's lab results. 03/31/23 20:00 03/31/23 20:00 Labs: Lab Results 03/31/23 03/31/23 03/31/23 Range/Units 20:00 20:37 23:28 WBC 8.9 (4.8-10.8) X10*3/uL RBC 4.64 (4.20-5.50) X10*6/uL Hgb 13.5 (12.0-16.0) g/dl Hct 40.5 (37.0-47.0) % MCV 87.3 (80.0-98.0) fL MCH 29.1 (27.0-33.0) pg MCHC 33.3 (31.0-35.0) g/dl RDW 14.4 (11.0-16.0) % Plt Count 337 (160-400) X10*3/uL MPV 9.8 (9.4-12.3) fL Immature Gran % (Auto) 0.3 (0.0-0.4) % Neut % (Auto) 59.3 (45-73) % Lymph % (Auto) 30.6 (20-40) % [place] % (Auto) 5.4 (2-11) % Eos % (Auto) 3.5 (0-4) % Baso % (Auto) 0.9 (0-2) % Lymph # (Auto) 2.7 (1.2-4.9) X10*3/uL [place] # (Auto) 0.5 (0.1-1.2) X10*3/uL Eos # (Auto) 0.3 (0.0-0.4) X10*3/uL Baso # (Auto) 0.1 (0.0-0.2) X10*3/uL Abs Immat Gran (auto) 0.03 (0.00-0.03) X10*3/uL Absolute Neuts (auto) 5.3 (2.0-8.3) x10*3/uL Absolute Nucleated RBC 0.000 (0.0-0.012) X10*3/uL Nucleated RBC % (auto) 0.0 (0.0-0.2) /100WBC D-Dimer High Sensitivty < 150 NG/ML Sodium 140 (135-145) mmol/L Potassium 4.1 (3.3-5.1) mmol/L Chloride 105 (96-108) mmol/L Carbon Dioxide 26 (22-29) mmol/L Anion Gap 13 (12-20) BUN 11 (9-16) mg/dL Creatinine 0.83 (0.5-1.4) mg/dL Estim Creat Clear Calc 59.1 Estimated GFR > 60 Random Glucose 99 (60-115) mg/dL Calcium 9.8 D (8.4-10.2) mg/dL Total Bilirubin 0.2 (0.0-1.0) mg/dL Direct Bilirubin < 0.2 (0.0-0.5) mg/dL AST 15 (5-31) U/L ALT 13 (0-31) U/L Alkaline Phosphatase 88 (39-117) U/L Troponin I High Sens < 2.7 (<3.5-17.0) ng/L Total Protein 7.8 (6.5-8.0) g/dL Albumin 4.4 (3.5-5.0) g/dL Lipase 21 (8-78) U/L Urine Color Yellow Urine Appearance Clear Urine pH 6.5 (5.0-9.0) Ur Specific [place] 1.020 (1.005-1.025) Urine Protein Negative (Neg-Trace) mg/dL Urine Glucose (UA) Negative (Negative) mg/dL Urine Ketones Negative (Negative) mg/dL Urine Blood Negative (Negative) Urine Nitrite Negative (Negative) Ur Leukocyte Esterase Negative (Negative) Independent Interpretation I performed an independent interpretation of an: EKG (Sinus heart rate is 70 positive left bundle branch block not changed from previous when compared) Radiology Impression Discussion of test interpretation with radiology: I have reviewed the radiologist's reading. External Record Review External record reviewed: Inpatient record and Outpatient record Previous cardiology record Chronic Conditions History of smoking Discharge Plan Discharge Clinical Impression: Chest pain Patient Disposition: Home, Self-Care Instructions: Chest Pain (DC) Prescriptions: No Action amoxicillin-pot clavulanate 875-125 mg tablet 1 tab PO BID Qty: 14 0RF morphine 15 mg tablet 15 mg PO Q6H PRN (Reason: pain) Qty: 14 0RF Rx Instructions: Partial Fill upon patient request. quetiapine [Seroquel] 50 mg tablet 50 mg PO BEDTIME mirtazapine 45 mg tablet 45 mg PO BEDTIME citalopram 10 mg tablet 10 mg PO DAILY pantoprazole 20 mg tablet,delayed release (DR/EC) 20 mg PO DAILY cyclobenzaprine 10 mg tablet 10 mg PO TID acetaminophen [Arthritis Pain Relief (acetam)] 650 mg tablet extended release 650 mg PO Q8H levothyroxine 25 mcg capsule 25 mcg PO DAILY Referrals: Horacio Mckeon MD [Physician] -
[2023-03-31 23:46] LABS: D Dimer High Sensitivity < 150 NG/ML
[2023-04-01 00:03] LABS: Troponin-I High Sensitivity < 2.7 ng/L (<3.5-17.0)
[2023-04-01 00:24] VITALS: BP 133/81; PULSE 69; RESP 14; TEMP 36.6; O2SAT 98
== END 2023-04-01 00:46 | disposition home or self-care (01) ==
PROVIDERS: Emergency Provider Emergency Medicine Emergency Medical Services; PCP Internal Medicine
DX: R07.9 Chest pain, unspecified (principal); I44.7 Left bundle-branch block, unspecified; F17.210 Nicotine dependence, cigarettes, uncomplicated; Z79.899 Other long term (current) drug therapy
CPT/HCPCS: 36415; 71045; 80048; 80076; 81003; 83690; 84484; 85025; 85379; 93005; 99283; 99285

== ENCOUNTER → 2023-03-31 19:55 | Outpatient (BNV) | payer MEDICAID, SELFPAY | PROVIDERS: Emergency Provider Emergency Medicine Emergency Medical Services; PCP Internal Medicine; Visit Provider Internal Medicine | DX: R94.31 Abnormal electrocardiogram [ECG] [EKG] (principal) | CPT/HCPCS: 93010 ==

== ENCOUNTER 2023-04-13 13:01 | Outpatient (AMB) | payer MEDICAID, SELFPAY ==
[2023-04-13 13:18] VITALS: BP 130/84; PULSE 67; BMI 23.5
--- NOTE | 2023-04-13 13:18 | A.OFFVIS_ITS ---
Intake Vital Signs 04/13/23 13:18 Height 5 ft 2 in Weight 128 lb 11.999 oz BMI 23.5 BP 130/84 Blood Pressure Location Lt brachial Position Sitting Pulse 67 Pulse Source Pulse Oximeter Intake Visit Reasons: [facility] [place] Environmental Health Sanitarian Required: Yes Environmental Health Sanitarian Language: Nicaraguan Allergies aspirin [ASPIRIN] Allergy (Mild, Verified 04/13/23 13:21) SWELLING, rash, swelling Medication List - Last Reconciled 04/13/23 by Osiris Flor NP-C acetaminophen ER (Arthritis Pain Relief (acetaminophen) ER) 650 mg PO Q8H citalopram 10 mg PO DAILY escitalopram oxalate 10 mg PO DAILY levothyroxine 25 mcg PO DAILY mirtazapine 45 mg PO BEDTIME pantoprazole 20 mg PO DAILY quetiapine (Seroquel) 50 mg PO BEDTIME HPI [facility] [place] HPI Details Kori is a 57-year-old female with past medical history of smoking, atypical chest discomfort, left bundle branch block who was recently seen in the emergency room for chest discomfort. She ruled out for ACS. She was referred back to Cardiology in follow-up. Today she reports that on the day of the ER visit she had been experiencing chest discomfort for a few days. She had moved the wrong way and developed a tightness in her chest which persisted. She now tells me that discomfort has fully resolved. She will feel a periodic stabbing to her left chest and some brief palpitations which occur mostly when she is feeling stressed.. She has no shortness of breath, presyncope, syncope, falls, PND, orthopnea or edema. She reports good activity tolerance. Takes meds as directed. Certified sawmill hand used [facility] Medical History Tubular adenoma Hypothyroidism (acquired) GERD (gastroesophageal reflux disease) Surgical History H/O colonoscopy Hx of appendectomy Hx of hysterectomy Family History Mother HX: breast cancer Father Hx of malignant neoplasm of nasal cavity Sister No problems noted. Social History Household Members: Spouse Alcohol intake: current Alcohol intake frequency: does not drink Cigarettes Per Day: 7 Years Smoked: 27 Second Hand Smoke Exposure: Yes Substance Use Type: Marijuana Current occupational status: disabled Review of Systems Const All systems reviewed & are unremarkable except as noted in HPI and below ENT Denies dizziness Card Denies chest pain, Denies chest pain at rest, Denies chest pain with activity, Denies rapid heart rate, Denies pedal edema, Denies edema, Denies leg edema, Denies lightheadedness, Denies palpitations, Denies dyspnea, Denies dyspnea on exertion and Denies orthopnea Resp Denies cough, Denies dyspnea and Denies dyspnea on exertion GI Denies hematochezia and Denies change in stool character Musc Denies abnormal gait, Denies limited range of motion, Denies muscle cramps, Denies muscle weakness, Denies numbness, Denies radiating pain into limb, Denies stiffness and Denies tingling Neuro Denies abnormal gait, Denies dizziness, Denies numbness and Denies tingling Endo Denies palpitations Physical Exam Vital Signs: Last Vital Signs Pulse 67 04/13/23 13:18 BP 130/84 04/13/23 13:18 BMI result Body Mass Index 23.5 Const General: cooperative, healthy appearing, comfortable and no acute distress Orientation/consciousness: patient oriented x3 Neck Neck: Yes normal visual inspection and Yes no JVD Resp Effort & Inspection: normal respiratory effort Auscultation: clear to auscultation bilaterally, no crackles, no rales, no rhonchi and no wheezes Cardio Jugular venous distension: no JVD Rate: regular rate Rhythm: regular rhythm Heart sounds: S1 normal heart sound present, S2 normal heart sound present, no murmurs and no rubs Neuro General: patient oriented x3 Extrem General: Yes normal to inspection, No no pedal edema and No calf tenderness Psych Appearance: grossly normal Mental Status: mental status grossly normal Speech and movement: Normal speech and movement present Assessment & Plan Assessment & Plan (1) Chest pain: Comment: Noncardiac in origin and reproducible on the chest wall. Previous normal coronary CT angiogram Code(s): R07.9 - Chest pain, unspecified Plan: Prior reports of chest discomfort with cardiac evaluation. A CTA of the coronary arteries had been done and according to notes it showed no significant CAD. She does have left bundle branch block on her EKGs. She iha cardiac risk factor of smoking, recently quit. Her last visit to our office was 05/13/2020. She presented to the ER on 04/01/2023 with chest discomfort. Her troponins were normal. Her EKG showed left bundle branch block. Chest x-ray showed no active disease. Her discomfort was felt to be atypical and she was referred back to her she in follow-up. Today she reports that she will get some sharp pains and brief palpitations in her chest when she is very stressed. She has no symptoms brought on by exertional activities. Her last echocardiogram was done on 10/09/2018 showing EF 50-55%, mild MR, normal RV. I see no reason for a stress test at this time. With her left bundle branch block and low normal EF on last echo I will update an echocardiogram to reassess EF and to look at wall motion. Reviewed with patient and she is agreeable. Plan to call her with results. Cardiology follow-up in the office 6 months, sooner if needed. If echo does show reduced EF then she will require med management and sooner follow-up. (2) LBBB (left bundle branch block): Code(s): I44.7 - Left bundle-branch block, unspecified Plan: Chronic Plan Time spent on chart review, documentation, interview and assessment Orders: Orders CA echo transthoracic complete Today I44.7 - Left bundle-branch block, unspecified Coding Level of Care Code Est Pt Level 3 (36285) Diagnoses Precordial pain R07.9 LBBB (left bundle branch block) I44.7 Time Spent (min) 22
== END 2023-04-13 14:04 | disposition home or self-care (01) ==
PROVIDERS: PCP Internal Medicine; Visit Provider Nurse Practitioner Family
DX: R07.9 Chest pain, unspecified (principal); I44.7 Left bundle-branch block, unspecified
CPT/HCPCS: 99213

== ENCOUNTER → 2023-04-13 13:01 | Outpatient (BNVA) | payer MEDICAID, SELFPAY | PROVIDERS: PCP Internal Medicine; Visit Provider Nurse Practitioner Family | DX: I44.7 Left bundle-branch block, unspecified (principal); R07.9 Chest pain, unspecified | CPT/HCPCS: 99212 ==

== ENCOUNTER → 2023-05-02 15:40 | Outpatient (REF) | payer MEDICAID, SELFPAY ==
--- NOTE | 2023-05-02 15:42 | CA_ITS ---
Transthoracic Echocardiogram Patient (Last, First, Middle): Kori Levy M Gender: Female Date of : 1965 Age: 57 Procedure Date: 05/02/2023 Procedure Type: Transthoracic Echocardiogram Location: OP Height: 157.48 cm Weight: 60.33 kg BSA: 1.61 m2 Heart Rate: bpm BP: 110 / 76 mmHg Management Professor: EDUARDA Referring MD: Osiris Flor SUPERVISOR [employer]-C Pharmacology Teacher: Diallo Martinez MD Symptoms: I44.7 - Left bundle-branch block, unspecified Study Quality: Adequate ECG Rhythm: Sinus Conclusions: - 1. Normal LV systolic function with LVEF of 55-60% with impaired relaxation filling pattern 2. Trivial aortic regurgitation 3. Normal RV systolic pressure 4. No pericardial effusion Findings Left Ventricle Normal left ventricular size, thickness, and systolic function. The visually estimated ejection fraction is between 55-60%. Spectral Doppler is indicative of an impaired relaxation filling pattern. E/E prime ratio is <8, consistent with normal filling pressures. Evidence suggests grade I (mild) diastolic dysfunction. Peak GLS is -22.2%, within normal limits. Right Ventricle Normal right ventricular cavity size and systolic function. Atria Both atria are normal in size. There is no evidence of interatrial shunt. Aortic Valve Normal aortic valve structure and function. There is no aortic valve stenosis. There is trace (trivial) aortic valve regurgitation. Mitral Valve Normal mitral valve structure and function. There is trace mitral valve regurgitation. There is no mitral valve stenosis. Pulmonic Valve The pulmonic valve is likely normal. Tricuspid Valve Normal tricuspid valve structure. There is trace tricuspid valve regurgitation. The right ventricular systolic pressure is normal. The right ventricular systolic pressure is 21 mmHg. Normal right atrial pressure. There is no evidence of pulmonary hypertension. Great Vessels All visible segments of the aorta are normal in size. The pulmonary artery was not well visualized. There is no dilatation of the ascending aorta measuring 2.50 cm. Venous The inferior vena cava is normal in size and collapses greater than 50% with inspiration. Pericardium/Pleural There is no evidence of pericardial effusion. Measurements 2D Linear Measurements IVSd: 0.86 0.6-0.9/0.6-1.0 cm LVIDd: 4.39 3.9-5.3/4.2-5.9 cm LVIDd Index: 2.73 2.4-3.2/2.2-3.1 cm/m2 LVIDs: 2.88 2.0-3.6 cm LVPWd: 0.92 0.7-1.1 cm LA Diam: 2.80 2.7-3.8/3.0-4.0 cm LAIDs Index: 1.74 1.5-2.3 cm/m2 LV Mass: 156.29 67-162/88-224 g LV Mass Index: 97.08 43-95/49-115 g/m2 LVOT Diam: 2.00 3.0+(-)1.3 cm 2D Systolic Function EF 4C: 56.80 >55% EF 2C: 61.70 >55% EF BiP: 58.90 >55% Mitral Valve MV Pk E: 0.82 MV PK A: 0.87 MV Decel Time: 243.00 E/A: 0.90 E'Lateral: 11.00 E'Medial: 7.07 E/E' Med: 11.60 E/E' Lat: 7.40 PHT: 71.00 MVA PHT: 3.10 Decel [place]: 3.37 Aortic Valve AoV Pk Socrates: 1.72 AoV Mn Socrates: 1.14 AoV VTI: 0.35 AoV Pk Grad: 12.00 Aov Mn Grad: 6.00 MARY Cont.VTI: 2.71 LVOT LVOT Pk Socrates: 1.45 LVOT Mn Socrates: 0.95 LVOT VTI: 0.30 LVOT Pk Grad: 8.00 LVOT Mn Grad: 4.00 LVOT Diam: 2.00 LVOT Area: 3.14 Diastolic Function MV Pk E: 0.82 MV Pk A: 0.87 E/A: 0.90 E'Medial: 7.07 E/E' Med: 11.60 E' Laterial: 11.00 E/E' Lat: 7.40 Right Ventricle TAPSE (mm): 22.80 TVS' Socrates: 12.70 Tricuspid Valve TR Pk Socrates: 2.13 TR Pk Grad: 18.00 RA Press: 3.00 RVSP: 21.00 Great Vessels Aorta Sinus of Valsalva: 2.55 2.0-3.5 cm Ao Asc: 2.50 2.1-3.4 cm Updated in Other Vendor System with Status of Final Diallo Martinez MD electronically signed on 05/03/2023 4:32:06 PM with status of Final
== END ==
LOC: HO.CARD 15:40
PROVIDERS: PCP Internal Medicine; Visit Provider Nurse Practitioner Family
DX: I44.7 Left bundle-branch block, unspecified (principal)
CPT/HCPCS: 93306; 93356

== ENCOUNTER → 2023-05-02 15:42 | Outpatient (BNV) | payer MEDICAID, SELFPAY | PROVIDERS: PCP Internal Medicine; Visit Provider Internal Medicine Cardiovascular Disease | DX: I44.7 Left bundle-branch block, unspecified (principal); R07.9 Chest pain, unspecified | CPT/HCPCS: 93306 ==

== ENCOUNTER 2023-09-06 13:06 | Outpatient (REF) | payer MEDICAID, SELFPAY | END 2023-09-06 13:07 | disposition home or self-care (01) | LOC: HO.MAMMO 13:06 | PROVIDERS: PCP Internal Medicine; Visit Provider Internal Medicine | DX: Z12.31 Encounter for screening mammogram for malignant neoplasm of breast (principal) | CPT/HCPCS: 77063; 77067 ==

== ENCOUNTER → 2023-09-06 13:30 | Outpatient (BNV) | payer MEDICAID, SELFPAY | PROVIDERS: PCP Internal Medicine; Visit Provider Radiology Diagnostic Radiology | DX: Z12.31 Encounter for screening mammogram for malignant neoplasm of breast (principal) | CPT/HCPCS: 77063; 77067 ==

== ENCOUNTER 2023-10-18 13:55 | Outpatient (AMB) | payer MEDICAID, SELFPAY ==
[2023-10-18 14:00] VITALS: BP 108/72; PULSE 72; BMI 24.8
--- NOTE | 2023-10-18 14:00 | MHC.OFFVIS ---
Vital Signs 10/18/23 14:00 Height 5 ft 2 in Weight 135 lb 12.876 oz BMI 24.8 BP 108/72 Blood Pressure Location Rt brachial Position Sitting Pulse 72 Pulse Source Pulse Oximeter Intake Visit Reasons: 6 month follow-up Manager Apple Required: Yes Manager Apple Language: Angolan Allergies aspirin [ASPIRIN] Allergy (Mild, Verified 10/18/23 14:05) SWELLING, rash, swelling Medication List - Last Reconciled 10/18/23 by Osiris Flor NP-C acetaminophen ER (Arthritis Pain Relief (acetaminophen) ER) 650 mg PO Q8H bupropion HCl SR 150 mg PO BID cholecalciferol (vitamin D3) (Vitamin D3) 50 mcg PO DAILY escitalopram oxalate 10 mg PO DAILY levothyroxine 25 mcg PO DAILY levothyroxine 25 mcg PO QAM mirtazapine 45 mg PO BEDTIME pantoprazole 20 mg PO DAILY quetiapine (Seroquel) 50 mg PO BEDTIME HPI HPI 6 month follow-up: Details: Kori is a 58-year-old female with past medical history of smoking, atypical chest discomfort, left bundle branch block who presents for follow-up. Today she reports that she has been getting a vague discomfort below her left breast. The episodes happen when she is very anxious or stressed. She does not have any exertional symptoms. She is having difficulty describing exactly how this feels. It sounds like it could be palpitations. She has no shortness of breath, presyncope, syncope, falls, PND, orthopnea or edema. She reports good activity tolerance. Takes meds as directed. Certified material control associate used [facility] Medical History Tubular adenoma Hypothyroidism (acquired) GERD (gastroesophageal reflux disease) Surgical History H/O colonoscopy Hx of appendectomy Hx of hysterectomy Family History Mother HX: breast cancer Father Hx of malignant neoplasm of nasal cavity Prostate cancer Sister No problems noted. Social History Household Members: Spouse Alcohol intake: current Alcohol intake frequency: does not drink Cigarettes Per Day: 7 Years Smoked: 27 Second Hand Smoke Exposure: Yes Substance Use Type: Marijuana Current occupational status: disabled Review of Systems Const All systems reviewed & are unremarkable except as noted in HPI and below ENT Denies dizziness Card Reports chest pain (feeling under left breast when upset - chest feels anxious at times), Denies chest pain at rest, Denies chest pain with activity, Denies rapid heart rate, Denies pedal edema, Denies edema, Denies leg edema, Denies lightheadedness, Denies palpitations, Denies dyspnea, Denies dyspnea on exertion and Denies orthopnea Resp Denies cough, Denies dyspnea and Denies dyspnea on exertion GI Denies hematochezia and Denies change in stool character Musc Denies abnormal gait, Denies limited range of motion, Denies muscle cramps, Denies muscle weakness, Denies numbness, Denies radiating pain into limb, Denies stiffness and Denies tingling Neuro Denies abnormal gait, Denies dizziness, Denies numbness and Denies tingling Endo Denies palpitations Physical Exam Vital Signs: Last Vital Signs Pulse 72 10/18/23 14:00 BP 108/72 10/18/23 14:00 BMI result Body Mass Index 24.8 Const General: cooperative, healthy appearing, comfortable and no acute distress Orientation/consciousness: patient oriented x3 Neck Neck: Yes normal visual inspection and Yes no JVD Resp Effort & Inspection: normal respiratory effort Auscultation: clear to auscultation bilaterally, no crackles, no rales, no rhonchi and no wheezes Cardio Jugular venous distension: no JVD Rate: regular rate Rhythm: regular rhythm Heart sounds: S1 normal heart sound present, S2 normal heart sound present, no murmurs and no rubs Neuro General: patient oriented x3 Extrem General: Yes normal to inspection, No no pedal edema and No calf tenderness Psych Appearance: grossly normal Mental Status: mental status grossly normal Speech and movement: Normal speech and movement present Assessment & Plan Assessment & Plan (1) Chest pain: Comment: Noncardiac in origin and reproducible on the chest wall. Previous normal coronary CT angiogram Code(s): R07.9 - Chest pain, unspecified Category: Medical Plan: Prior reports of chest discomfort with cardiac evaluation. A CTA of the coronary arteries done on 12/27/2018 shows no evidence of hemodynamically significant coronary artery disease, EF 56%. She does have left bundle branch block on her EKGs, which is not new. She as cardiac risk factor of prior smoking, recently quit. ER evaluation for chest discomfort 04/01/2023 with chest discomfort and she ruled out for ACS. Echocardiogram done 05/02/2023 showed EF 55-60%, impaired relaxation, grade 1 diastolic dysfunction. Today she reports that she will get some sharp pains below her left breast when she is anxious and stressed. Her description sounds like this could be palpitation. She has no exertional symptoms. Will check a Holter monitor to see if she is having findings that could correlate with her symptom. No need for ischemic eval at this time. Plan to call her with test results. Cardiology follow-up in the office 6 months, sooner if needed. (2) LBBB (left bundle branch block): Code(s): I44.7 - Left bundle-branch block, unspecified Category: Medical Plan: Chronic (3) Palpitations: Comment: She has been experiencing palpitations 2 to 3 times a week. She is quite anxious. Code(s): R00.2 - Palpitations Category: Medical Plan: As above Plan Time spent on chart review, documentation, interview and assessment Orders: Orders ECG 3 day holter monitor Today R00.2 - Palpitations Coding Level of Care Code Est Pt Level 3 (72808) Diagnoses Precordial pain R07.9 LBBB (left bundle branch block) I44.7 Palpitations R00.2 Time Spent (min) 24
== END 2023-10-18 14:38 | disposition home or self-care (01) ==
PROVIDERS: PCP Internal Medicine; Visit Provider Nurse Practitioner Family
DX: R07.9 Chest pain, unspecified (principal); I44.7 Left bundle-branch block, unspecified; R00.2 Palpitations
CPT/HCPCS: 99213

== ENCOUNTER → 2023-10-18 13:55 | Outpatient (BNVA) | payer MEDICAID, SELFPAY | PROVIDERS: PCP Internal Medicine; Visit Provider Nurse Practitioner Family | DX: R07.9 Chest pain, unspecified (principal); I44.7 Left bundle-branch block, unspecified; R00.2 Palpitations | CPT/HCPCS: 99212 ==

== ENCOUNTER → 2023-11-05 10:42 | Outpatient (REF) | payer MEDICAID, SELFPAY | LOC: HO.CARD 10:42 | PROVIDERS: PCP Internal Medicine; Visit Provider Nurse Practitioner Family | DX: Z13.89 Encounter for screening for other disorder (principal) ==

== ENCOUNTER 2024-03-20 09:38 | Outpatient (REF) | payer MEDICAID, SELFPAY ==
[2024-03-20 11:55] LABS: Estimated Average Glucose 117 mg/dL; Hemoglobin A1C 133.9745 umol/L; Hemoglobin A1c % 5.7 % (<6.0); Total Hemoglobin (HGBA1C) 3496.8319 umol/L
[2024-03-20 13:07] LABS: Alanine Aminotransferase 26 U/L (0-31); Albumin Level 4.2 g/dL (3.5-5.0); Alkaline Phosphatase 85 U/L (39-117); Anion Gap 14 (12-20); Aspartate Amino Transferase 27 U/L (5-31); Bilirubin Total 0.3 mg/dL (0.0-1.0); Blood Urea Nitrogen 11 mg/dL (9-16); Calcium 9.8 mg/dL (8.4-10.2); Carbon Dioxide 24 mmol/L (22-29); Chloride 109 mmol/L (96-108); Cholesterol 270 mg/dL (<200); Estimated Glomerular Filt Rate > 60; Glucose Random 94 mg/dL (60-115); HDL Cholesterol 46 mg/dL (>40); LDL Cholesterol Calculated 188 mg/dL (<100); Potassium 4.5 mmol/L (3.3-5.1); Sodium 142 mmol/L (135-145); Total Protein 7.5 g/dL (6.5-8.0); Triglycerides 181 mg/dL (<150)
[2024-03-20 13:10] LABS: TSH reflex Free T4 5.01 uIU/mL (0.32-4.0)
[2024-03-20 13:51] LABS: Free T4 (Free Thyroxine) 0.85 ng/dL (0.71-1.85)
== END 2024-03-20 09:39 | disposition home or self-care (01) ==
LOC: HO.HHCL 09:38
PROVIDERS: Visit Provider Internal Medicine
DX: E03.9 Hypothyroidism, unspecified (principal)
CPT/HCPCS: 36415; 80053; 80061; 83036; 84439; 84443

== ENCOUNTER 2024-03-20 16:53 | Outpatient (REF) | payer MEDICAID, SELFPAY ==
[2024-03-21 09:45] LABS: HPV 16,18/45 See PAP report
== END 2024-03-20 16:54 | disposition home or self-care (01) ==
LOC: HO.HHCLNP 16:53
PROVIDERS: Visit Provider Internal Medicine
DX: Z01.419 Encounter for gynecological examination (general) (routine) without abnormal findings (principal); Z11.51 Encounter for screening for human papillomavirus (HPV)
CPT/HCPCS: 87626; 88175

== ENCOUNTER 2024-11-04 08:06 | Outpatient (REF) | payer MEDICAID, SELFPAY ==
--- OUTSIDE RECORDS SUMMARY | 2024-11-03 18:20 | XMS_ITS | Encounter Summary ---
Author Organization [employer] Address [address] [place] [address] Care Team Providers Care Page Makeup System Operator Name Role Phone Sarah Montoya MD Primary Care Provide r Encounter Details Date Type Department Care Team ([facility] st Contact Info) Description 11/03/2024 6:20 PM EDT Office Visit [facility] [address] [place] [address] Jairo Meadows MD [address] [place] [address] Mild intermittent asthma with acute exacerbation (Primary Dx) Social History Tobacco Use Types Packs/Day Years Used Date Smoking Tobacco: Former Cigarettes Passive Smoke Exposure: Past Smokeless Tobacco: Current Alcohol Use Standard Drinks/Week Comments Never 0 (1 standard drink = 0.6 oz pur e alcohol) Depression Answer Date Recorded Patient Health Questionnaire-9 Score 0 12/18/2023 Patient Health Questionnaire-9 Score 0 12/18/2023 Last PHQ-9: Questionnaire Data Not on file 1 Housing Stability Answer Date Recorded What is your housing situation today? I have maged curry 01/02/[address] you li ve. Do you have problems with any of the following? None of the above 01/02/2023 Food Insecurity Answer Date Recorded Within the past 12 months, y ou worried that your food would run out before you got money to buy more: Never True 01/02/2023 Within the past 12 months,th e food you bought just didn't last and you didn't have enough money to get more: Never True Transportation Answer Date Recorded In the past 12 months, has l ack of transportation kept you from medical appts, meetings, work or from getting things needed for daily living? No 01/02/2023 Utilities Answer Date Recorded In the past 12 months, has t he electric, gas, oil or water company threatened to shut off services in your home? No 01/02/2023 Depression Answer Date Recorded Patient Health Questionnaire-2 Score 0 12/18/2023 Comments Unknown Sex and Gender Information Value Date Recorded Sex Assigned at Female 01/09/2022 10:17 AM EDT Legal Sex Female 10:17 AM EDT Gender Identity Female 01/09/2022 10:17 AM EDT Sexual Orientation Straight 01/09/2022 10 :17 AM EDT documented as of this encounter Last Filed Vital Signs Vital Sign Reading Time Taken Comments Blood Pressure 145/91 11/03/2024 6:00 PM EDT Pulse 86 11/03/2024 6:00 PM EDT Temperature 36.8 C (98.2 F) 11/03/2024 6:00 PM EDT Respiratory Rate 24 11/03/2024 6:00 PM EDT Oxygen Saturation 94% 11/03/2024 6:00 PM EDT Inhaled Oxygen Concentration - - Weight 59 kg (130 lb) 11/03/2024 6:00 PM EDT Height - - Body Mass Index 23.78 03/20/2024 9:57 AM EST documented in this encounter Progress Notes * Jairo Meadows MD - 11/03/2024 6:20 PM EDT Subjective History was provided by the patient. Kori Denson is a 59 y.o. female who presents for evaluation of 1-week duration of SOB, wheezing, and cough. Denies F/C/N/V/D. Denies congestion, rhinorrhea, or sore throat. Denies DELCID or myalgia. Quit smoking 3 years ago. Denies any recent travel. Denies leg swelling or pain. Unsure of any allergy/asthma triggers. Paxton better after using a nebulizer treatment of Albuterol at home. Denies CP or palpitations. Has an upcoming appointment with PCP on 11/27/2024. Objective Vitals: 11/03/24 1800 BP: (!) 145/91 BP Location: Left arm Patient Position: Sitting BP Cuff Size: Adult Pulse: 86 Resp: 24 Temp: 98.2 ??F (36.8 ??C) TempSrc: Oral SpO2: 94% Weight: 130 lb (59 kg) Physical Exam Vitals reviewed. Constitutional: General: She is not in acute distress. Appearance: Normal appearance. She is normal weight. She is not ill-appearing, toxic-appearing or diaphoretic. Comments: Speaking in full sentences; no cyanosis HENT: Head: Normocephalic and atraumatic. Right Ear: Tympanic membrane, ear canal and external ear normal. Left Ear: Tympanic membrane, ear canal and external ear normal. Nose: Nose normal. No congestion or rhinorrhea. Mouth/Throat: Mouth: Mucous membranes are moist. Pharynx: Oropharynx is clear. No oropharyngeal exudate or posterior oropharyngeal erythema. Eyes: Extraocular Movements: Extraocular movements intact. Conjunctiva/sclera: Conjunctivae normal. Pupils: Pupils are equal, round, and reactive to light. Cardiovascular: Rate and Rhythm: Normal rate and regular rhythm. Heart sounds: Normal heart sounds. Pulmonary: Effort: Pulmonary effort is normal. No respiratory distress. Breath sounds: No stridor. Wheezing (Diffusely scattered end-expiratory wheezing) present. No rhonchi or rales. Chest: Chest wall: No tenderness. Musculoskeletal: General: Normal range of motion. Cervical back: Normal range of motion and neck supple. Lymphadenopathy: Cervical: No cervical adenopathy. Skin: General: Skin is warm and dry. Neurological: General: No focal deficit present. Mental Status: She is alert and oriented to person, place, and time. Psychiatric: Mood and Affect: Mood normal. Behavior: Behavior normal. Diagnoses and all orders for this visit: Mild intermittent asthma with acute exacerbation (Primary) - predniSONE (Deltasone) 20 MG tablet; Take 2 tablets (40 mg) by mouth Once per day for 5 days. - albuterol 108 (90 Base) MCG/ACT inhaler; Inhale 2 puffs every 4 (four) hours if needed for wheezing or shortness of breath. - XR Chest 2 Views; Future Patient with a clinical presentation of acute exacerbation of mild intermittent asthma Typically does not require Albuterol daily Unsure of any triggers for her current symptoms Denies URI symptoms Stopped smoking 3 years ago Denies any recent travel Denies leg swelling or pain Will treat with a 5-day course of Prednisone 40mg daily Rx Albuterol prn Potential adverse effects of the medications reviewed Check CXR Indications for UC/ER use reviewed Advised to contact the clinic if persistent or worsening symptoms documented in this encounter Miscellaneous Notes * Addendum Note - Dakota Guerrier MA - 11/03/2024 6:20 PM EDTAddended by: DAKOTA GUERRIER on: 11/03/2024 07:23 PM Modules accepted: Orders documented in this encounter Plan of Treatment Upcoming Encounters Date Type Department Care Team (Late st Contact Info) Description 11/27/2024 1:00 PM EDT Office Visit [facility] [address] [place] [address] Sarah Montoya MD [address] [place] [address] Scheduled Orders Name Type Priority Associated Diagnoses Orde r Schedule XR Chest 2 Views Imaging Routine Mild intermittent asthma with acute exacerbation Expected: 11/03/2024, Expires: 11/03/2025 documented as of this encounter Procedures Procedure Name Priority Date/Time Associated Diagnosis Comments POCT INFLUENZA B (ID NOW RAPID MOLECULAR) Routine 11/03/2024 7:23 PM EDT Mild intermittent asthma with acute exacerbation POCT INFLUENZA A (ID NOW RAPID MOLECULAR) Routine 11/03/2024 7:23 PM EDT Mild intermittent asthma with acute exacerbation POCT COVID-19 AG BELL ID NOW Routine 11/03/2024 7:23 PM EDT Mild intermittent asthma with acute exacerbation documented in this encounter Results * POCT Rapid Influenza B BELL ID NOW (11/03/2024 7:23 PM EDT) Influenza B Negative Negative, Indeterminate [facility] Swab 11/03/2024 7:23 PM EDT us Jairo Meadows MD POINT OF CARE TEST ENTER/EDIT OR DERABLES Final Result Performing Organization Address City/[facility]/ZIP Co de Phone Number [facility] [address] [place] [phone] * POCT Rapid Influenza A BELL ID NOW (11/03/2024 7:23 PM EDT) Influenza A Negative Negative, Indeterminate [facility] Swab 11/03/2024 7:23 PM EDT us Jairo Meadows MD POINT OF CARE TEST ENTER/EDIT OR DERABLES Final Result Performing Organization Address [facility] de Phone Number [facility] [address] [place] [phone] * POCT Rapid Covid-19 BELL ID NOW (11/03/2024 7:23 PM EDT) Coronavirus Antigen PCR Negative Negative, Indeterminate, None Detected, Invalid, Specimen unsatisfactory for evaluation, Weakly Positive, 2+ Swab 11/03/2024 7:23 PM EDT us Jairo Meadows MD POINT OF CARE TEST ENTER/EDIT OR DERABLES Final Result documented in this encounter Visit Diagnoses Diagnosis Mild intermittent asthma with acute exacerbation- Primary documented in this encounter Additional Health Concerns Assessment Noted Time PHQ-9 Depression Total Score: 0 12/18/19 24 1:39 PM EDT documented as of this encounter Care Teams Page Makeup System Operator Relationship Specialty Start Date End Date Sarah Montoya MD [address] [place] [phone] PCP - General Family Medicine 02/22/18 documented as of this encounter
--- NOTE | ~2024-11-04 | XR_ITS ---
EXAMINATION: XR CHEST 2 VIEWS HISTORY: Patient with 1-week duration of SOB and wheezing. COMPARISON: Comparison is made with the prior examination dated 03/31/2023. FINDINGS: PA and lateral views of the chest are submitted. There is biapical pleural thickening. The lungs are expanded and clear. There is no pleural effusion, pneumothorax, or pulmonary vascular congestion. The heart is normal in size. The bones are intact. XR/XR chest 2V IMPRESSION: No acute cardiopulmonary abnormality. Electronically signed by: Milad Avila MD 11/04/2024 09:07 AM EDT
--- OUTSIDE RECORDS SUMMARY | 2024-11-04 08:13 | XMS_ITS | Encounter Summary ---
Author Organization [employer] Address [address] [facility] 7t [place] [address] Care Team Providers Care Food Management Aide Name Role Phone Sarah Montoya MD Primary Care Provide r Encounter Details Date Type Department Care Team (Late st Contact Info) Description 07/11/2022 Orders Only [facility] [address] [place] [address] Samia Serrano LPN Social History Tobacco Use Types Packs/Day Years Used Date Smoking Tobacco: Never Assessed Comments Unknown Sex and Gender Information Value Date Recorded Sex Assigned at Female 01/09/2022 10:17 AM EDT Legal Sex Female 10:17 AM EDT Gender Identity Female 01/09/2022 10:17 AM EDT Sexual Orientation Straight 01/09/2022 10 :17 AM EDT documented as of this encounter Plan of Treatment Upcoming Encounters Date Type Department Care Team (Late st Contact Info) Description 11/27/2024 1:00 PM EDT Office Visit [facility] [address] [place] [address] Sarah Montoya MD [address] [place] [address] documented as of this encounter Visit Diagnoses Not on filedocumented in this encounter Care Teams Food Management Aide Relationship Specialty Start Date End Date Sarah Montoya MD [address] [place] [phone] PCP - General Family Medicine 02/22/18 documented as of this encounter
--- OUTSIDE RECORDS SUMMARY | 2024-11-04 08:13 | XMS_ITS | Encounter Summary ---
Author Organization [employer] Address [address] [facility] [address] 7[address] [place] [address] Care Team Providers Care Power Ballast Machine Operator Name Role Phone Sarah Montoya MD Primary Care Provide r Encounter Details Date Type Department Care Team ([facility] st Contact Info) Description 07/09/2024 Orders Only [facility] PEDS [address] [place], [place] [phone] Lizzy No Social History Tobacco Use Types Packs/Day Years [...] Description 11/27/2024 1:00 PM EDT Office Visit [facility] [address] [place] [address] Sarah Montoya MD [address] [place] [phone] documented as of this encounter Procedures Procedure Name Priority Date/Time Associated Diagnosis Comments HPV MRNA E6/E7 REFLEX TO HPV 16, 18/45 Routine 03/20/2024 12:00 AM EST documented in this encounter Results * HPV mRNA E6/E7 w/Reflex to HPV Genotypes 16, 18/45 (03/20/2024 12:00 AM EST) us Historical Provider LAB CYTOLOGY ORDERABLES F inal Result documented in this encounter Visit Diagnoses Not on filedocumented in this encounter Additional Health Concerns Assessment Noted Time PHQ-9 Depression Total Score: 0 12/18/19 24 1:39 PM EDT documented as of this encounter Care Teams Power Ballast Machine Operator Relationship Specialty Start Date End Date Sarah Montoya MD [address] [place] [address] [phone] PCP - General Family Medicine 02/22/18 documented as of this encounter
--- OUTSIDE RECORDS SUMMARY | 2024-11-04 08:13 | XMS_ITS | Clinical Summary ---
Author Organization [employer] Address [address] [facility] 7t [place] [address] Care Team Providers Care Charge Lpn Name Role Phone Sarah Montoya MD Primary Care Provide r Allergies Active Allergy Reactions Criticality Noted Date Comments Aspirin Swelling,Hives Medium Medications pantoprazole (ProtoNix) 20 MG EC tabletIndications: Gastroesophageal reflux disease without esophagitis Take 1 tablet (20 mg) by mouth before breakfast. Do not crush, chew, or split. 90 tablet 3 4 Active albuterol 108 (90 Base) MCG/ACT inhalerIndications :Mild intermittent asthma, unspecified whether complicated Inhale 2 puffs every 6 (six) hours if needed for wheezing. 18 g 1 4 12/18/19 25 Active acetaminophen (Tylenol 8 Hour) 650 MG ER tabletIndications: Localized osteoarthritis of hands, bilateral Take 2 tablets (1,300 mg) by mouth every 8 (eight) hours if needed for mild pain. Do not crush, chew, or split. 30 tablet 2 4 Active buPROPion SR (Wellbutrin SR) 150 MG 12 hr tabletIndications: Mood disorder (CMS/HCC) TAKE 1 TABLET BY MOUTH TWICE DAILY 180 tablet 5 Active D3 Super Strength 50 MCG (1999 UT) capsuleIndications :Vitamin D deficiency TAKE 1 CAPSULE BY MOUTH EVERY DAY 90 capsule 5 Active QUEtiapine (SEROquel) 50 MG tablet TAKE 1 TABLET BY MOUTH DAILY AT BEDTIME 30 tablet 5 5 Active escitalopram (Lexapro) 10 MG tablet TAKE 1 TABLET BY MOUTH ONCE DAILY 30 tablet 5 5 Active mirtazapine (Remeron) 45 MG tablet TAKE 1 TABLET BY MOUTH DAILY AT BEDTIME 30 tablet 5 5 Active levothyroxine (Synthroid, Levoxyl) 25 MCG tablet TAKE 1 TABLET BY MOUTH EVERY MORNING 90 tablet 1 5 Active predniSONE (Deltasone) 20 MG tabletIndications: Mild intermittent asthma with acute exacerbation Take 2 tablets (40 mg) by mouth Once per day for 5 days. 10 tablet 5 11/09/19 25 Active albuterol 108 (90 Base) MCG/ACT inhalerIndications :Mild intermittent asthma with acute exacerbation Inhale 2 puffs every 4 (four) hours if needed for wheezing or shortness of breath. 18 g 5 12/04/19 25 Active Active Problems Problem Noted Date Diagnosed Date Encounter for cervical Pap smear with pelvic exa m 03/20/2024 Assessment & Plan (03/20/2024 12:28 PM EST): PAP and pelvic exam done today, she will be contacted with results Carpal tunnel syndrome 08/10/2022 Hand pain 08/10/2022 Localized osteoarthritis of hands, bilateral 03/2022 Assessment & Plan (12/18/2023 4:17 PM EDT): Acetaminophen PRN Coccygeal pain 08/01/2022 Mild intermittent asthma 08/01/2022 Assessment & Plan (12/18/2023 4:16 PM EDT): Stable c/w same interventions Assessment & Plan (08/01/2022 12:07 PM EDT): Patient educated to avoid triggers Albuterol inhaler prescribed Anxiety and depression 08/01/2022 Assessment & Plan (08/01/2022 12:07 PM EDT): Controlled continue with current interventions, reports bupropion had helped her a lot Sore throat 08/01/2022 Assessment & Plan (08/01/2022 12:08 PM EDT): I will send message to nurses to triage her Full dentures 06/08/2017 Assessment & Plan (08/01/2022 12:08 PM EDT): Patient to be schedule for next available PAP smear Acquired hypothyroidism 06/08/2017 Assessment & Plan (12/18/2023 4:17 PM EDT): TSH will be check with labs Chronic eustachian tube salpingitis 06/08/2017 Chronic pain 06/08/2017 Edentulous 06/08/2017 Gastroesophageal reflux disease without esophagi tis 06/08/2017 Assessment & Plan (12/18/2023 4:16 PM EDT): I advise patient to avoid NSAIDs, spicy and acid food, I advise to eat at the same time every day, I advise to elevate the head of the bed and take medications as prescribe Mixed conductive and sensorineural hearing loss, bilateral 06/08/2017 Mood disorder 06/08/2017 Smoker 06/08/2017 Vitamin D deficiency 06/08/2017 Encounters Date Type Department Care Team Description 11/03/2024 6:20 PM EDT Office Visit [facility] [address] [place] [address] Jairo Meadows MD Mild intermittent asthma with acute exacerbation (Primary Dx) 11/03/2024 Travel 09/07/2024 Refill [facility] [address] [place] [address] Sarah Montoya MD 08/08/2024 Refill [facility] & PEDS [address] [place] [address] Sarah Montoya MD from Last 3 Months Immunizations Immunization Administration Dates Next Due Influenza injectable quadriv alent IIV4 with preservative 04/30/2019 Influenza injectable quadriv alent preservative free 01/25/2021,02/10/2020,03/22/2018 Influenza, IIV3, injectable 12/16/2013, 9 Influenza, Split (incl. candy fied surface antigen) 02/14/2013,01/03/2012 Influenza, seasonal, injecta ble, preservative free 12/18/2023 Pfizer Covid-19 Vaccine 12+ 12/18/2023 Pneumococcal Polysaccharide PPSV23 03/24/2014 TD (adult), 2 Lf tetanus tox oid, preservative free, adsorbed 12/30/2004 Tdap 01/03/2012 Social History Tobacco Use Types Packs/Day Years Used Date Smoking Tobacco: Former Cigarettes Passive Smoke Exposure: Past Smokeless Tobacco: Current Tobacco Cessation:Ready to Q uit: Not Asked; Counseling Given: Not Answered Alcohol Use Standard Drinks/Week Comments Never 0 [...] Orientation Straight 01/09/2022 10 :17 AM EDT Last Filed Vital Signs Vital Sign Reading Time Taken Comments Blood Pressure 145/91 11/03/2024 6:00 PM EDT Pulse 86 11/03/2024 6:00 PM EDT Temperature 36.8 C (98.2 F) 11/03/2024 6:00 PM EDT Respiratory Rate 24 11/03/2024 6:00 PM EDT Oxygen Saturation 94% 11/03/2024 6:00 PM EDT Inhaled Oxygen Concentration - - Weight 59 kg (130 lb) 11/03/2024 6:00 PM EDT Height 157.5 cm (5' 2 ) 03/20/2024 9:57 AM EST Body Mass Index 23.78 03/20/2024 9:57 AM EST Plan of Treatment Upcoming Encounters Date Type Department Care Team (Late st Contact Info) Description 11/27/2024 1:00 PM EDT Office Visit [facility] [address] [place], [place] [phone] Sarah Montoya MD [address] [place] [address] Health Maintenance Due Date Last Done Comments CT Colonography 1965 Dental Prophylaxis 1965 Dental X-Ray: Bitewings 1965 FIT DNA/Cologuard 1965 FIT 1965 FOBT 1965 HIV Screening 1965 Sigmoidoscopy 1965 Disability Screening 1965 Alcohol/Substance Use Screening 1977 Hepatitis C Screening 06/06/1983 Hepatitis B Vaccines (1 of 3 - 19+ 3-dose series) 1984 Pneumococcal Vaccine: 50+ Years (2 of 2 - PCV) 03/24/2015 03/24/2014 Zoster Vaccines (1 of 2) 06/06/2015 Dental Oral Exam 11/07/2016 05/09/2016 DTaP/Tdap/Td Vaccines (2 - Td or Tdap) 01/02/2022 01/03/2012, 12/30/2004 SDOH Screening 05/16/2024 05/17/2023 Mammogram 09/05/2024 09/06/2023, 12/11, 09/05/2019, Additional history exists Influenza Vaccine (#1) 2024 , 01/25/2021, 02/10/2020, Additional history exists Depression Screening 12/17/2024 12/18/2023, 12/18/19 Diabetes: Hemoglobin A1C 03/20/2025 03/20/2024 Colonoscopy 05/21/2025 05/21/2020 Colorectal Cancer Screening 05/21/2025 Tobacco Screening 11/03/2025 11/03/2024 Dental X-Ray: Full Mouth 03/22/2027 03/21/2024 Cervical Cancer Screening 03/20/2029 HPV/Cotest 03/20/2029 03/20/2024 Lipid Panel 03/20/2029 03/20/2024 Pap Smear 03/20/2029 03/20/2024 RSV Patients and Patients Aged 60 years or older (1 - 1-dose 75+ series) 2040 COVID-19 Vaccine Completed 12/18/2023, 06/2020, 07/12/2020, Additional history exists HIB Vaccines Aged Out No longer eligi ble based on patient's age to complete this topic HPV Vaccines Aged Out No longer eligi ble based on patient's age to complete this topic Hepatitis A Vaccines Aged Out No long er eligible based on patient's age to complete this topic IPV Vaccines Aged Out No longer eligi ble based on patient's age to complete this topic Meningococcal B Vaccine Aged Out No l onger eligible based on patient's age to complete this topic Meningococcal Vaccine Aged Out No cathy romana eligible based on patient's age to complete this topic RSV under 20 months Aged Out No longe r eligible based on patient's age to complete this topic Rotavirus Vaccines Aged Out No longer eligible based on patient's age to complete this topic Procedures Procedure Name Priority Date/Time Associated Diagnosis Comments POCT INFLUENZA B (ID NOW RAPID MOLECULAR) Routine 11/03/2024 7:23 PM EDT Mild intermittent asthma with acute exacerbation POCT INFLUENZA A (ID NOW RAPID MOLECULAR) Routine 11/03/2024 7:23 PM EDT Mild intermittent asthma with acute exacerbation POCT COVID-19 AG BELL ID NOW Routine 11/03/2024 7:23 PM EDT Mild intermittent asthma with acute exacerbation PANORAMIC RADIOGRAPHIC IMAGE Routine 03/21/2024 9:30 AM EST HEMOGLOBIN A1C Routine 03/20/2024 9:40 AM EST Acquired hypothyroidism LIPID PANEL, STANDARD Routine 03/20/2024 9:40 AM EST Acquired hypothyroidism HPV MRNA E6/E7 REFLEX TO HPV 16, 18/45 Routine 03/20/2024 12:00 AM EST PAP SMEAR Routine 03/20/2024 12:00 AM EST Encounter for cervical Pap smear with pelvic exam BI MAMMOGRAM SCREENING TOMOSYNTHESIS BILATERAL Routine 09/06/2023 1:28 PM EDT HM COLONOSCOPY Routine 05/21/2020 PERIODIC ORAL EVALUATION - ESTABLISHED PATIENT Routine 05/09/2016 12:00 AM EST from Last 3 Months or Most Recently Relevant to Health Maintenance Results * POCT Rapid Influenza B BELL ID NOW (11/03/2024 7:23 PM EDT) [facility] Influenza B Negative Negative, Indeterminate [facility] Swab 11/03/2024 7:23 PM EDT us Jairo Meadows MD POINT OF CARE TEST ENTER/EDIT OR DERABLES Final Result Performing Organization Address [facility] Co de Phone Number [facility] [address] [place] [phone] * POCT Rapid Influenza A BELL ID NOW (11/03/2024 7:23 PM EDT) [facility] Influenza A Negative Negative, Indeterminate [facility] Swab 11/03/2024 7:23 PM EDT us Jairo Meadows MD POINT OF CARE TEST ENTER/EDIT OR DERABLES Final Result Performing Organization Address [facility] Co de Phone Number [facility] [address] [place] [phone] * POCT Rapid Covid-19 BELL ID NOW (11/03/2024 7:23 PM EDT) Coronavirus Antigen PCR Negative Negative, Indeterminate, None Detected, Invalid, Specimen unsatisfactory for evaluation, Weakly Positive, 2+ Swab 11/03/2024 7:23 PM EDT Jairo Meadows MD POINT OF CARE TEST ENTER/EDIT OR DERABLES Final Result * Hemoglobin A1c (03/20/2024 9:40 AM EST) Hemoglobin A1c 5.7 <6.0 % [facility] Comment:Hemoglobin A1C Refer ence Range Adults: 4.8 - 6.0 % Non diabetic: < 6.0 % Goal: < 7.0 %Additional Action Suggested: > 8.0 %Note: Hemoglobin A1c results are invalid for patients with abnormal amounts of HbF. Blood transfusions may impact the HbA1c concentration in the patient sample. Estimated Average Glucose 117 mg/dL [facility] Comment:eAG = Estimated ave rage glucose which is %A1C expressed asaverage glucose, using the formula of the A7Z-[id number] Glucose study (ADAG), Diabetes Care, Vol.31,#8,Oct. 2007 Blood Venous blood specimen / Unknown 03/20/2024 9:40 AM EST 03/20/2024 11:23 AM EST us Sarah Toney MD LAB BLOOD ORDERABLES Final Result [facility] [address] [place] [address] [phone] * (ABNORMAL) Lipid Panel, Standard (03/20/2024 9:40 AM EST) Triglycerides 181(H) <150 mg/dL [facility] Comment:Desirable Triglyceri de: less than 150 mg/dLBorderline High Triglyceride 150-199 mg/dLHigh Triglyceride: 200-499 mg/dLVery High Triglyceride: greater than or equal to 5OO mg/dL Cholesterol 270(H) <200 mg/dL [facility] Comment:Desirable Cholestero l: less than 200 mg/dLBorderline High Cholesterol: 200-239 mg/dLHigh Cholesterol: greater than 239 mg/dL LDL Cholesterol Calculated 188(H) <100 mg/dL [facility] Comment:Desirable LDL: less than 100 mg/dLNear Optimal/Above Optimal LDL: 110- 129 mg/dLBorderline High LDL: 130-159 mg/dLHigh LDL: 160-189 mg/dLVery High LDL: greater than or equal to 190 mg/dL HDL Cholesterol 46 >40 mg/dL [facility] Comment:Desirable HDL: great er than 40 mg/dL Note: This HDL assay may give artificially low results in patients with liver disease. Blood Venous blood specimen / Unknown 03/20/2024 9:40 AM EST 03/20/2024 11:23 AM EST us Sarah Toney MD LAB BLOOD ORDERABLES Final Result [facility] [address] [place] [phone] * HPV mRNA E6/E7 w/Reflex to HPV Genotypes 16, 18/45 (03/20/2024 12:00 AM EST) Historical Provider LAB CYTOLOGY ORDERABLES F inal Result * Pap Smear (03/20/2024 12:00 AM EST) Swab 03/20/2024 03/21/2024 8:5 0 AM EST Narrative [facility] - 03/27/2024 10:01 AM EST ----- ------- Name: Kori Levy Age/Sex: 58/F : 1965 Unit#: [id number] Attend Dr: Sarah Montoya MD Re03/20/24 Status: DEP REF Location: [facility] Disch: ----- ------- SPEC : [id number] RECD: 03/21/24 STATUS: KONSTANTIN ESQUEDA NUM: [id number] ESTEFANIA: 03/20/24-[address]: Sarah Montoya MD ENTERED: 03/21/24 SP TYPE: Pap Smr OTHR DR: ORDERED: Pap Smear Interpretation Satisfactory for evaluation. Negative for intraepithelial lesion or malignancy. HPV High Risk: Negative HPV Genotyping 16: Negative HPV Genotyping 18: Negative Clinical Information LMP: Post menopausal Previous PAP test: Normal Other surgery: Other history: Material Received ThinPrep-Cervical ----- ------- Signed (signature on file) BEN Ramirez (ASCP) 03/27/24 1001 ----- ------- END OF REPORT us Sarah Toney MD LAB CYTOLOGY ORDERABL ES Final Result [facility] [address] [place] [phone] * BI Mammogram Screening Tomosynthesis Bilateral (09/06/2023 1:28 PM EDT) Anatomical Region Laterality Modality Breast Bilateral Mammography 09/06/2023 1:28 PM EDT Narrative 10/05/2023 8:58 AM EDT [facility] [address] [place] [address] Mammography Report Signed Patient: Kori Levy MR#: [id number] : 1965 Acct:[id number] Age/Sex: 58 / F ADM Date: 09/06/23 Loc: HO.MAMMO Attending Dr: Sarah Toney MD Ordering Physician: Sarah Montoya MD Results: 1Negative Date of Service: 09/06/23 Follow Up: 1 Year From Orig ina Mammogram Procedure(s): MM tomosynthesis screening BI Accession Number(s): [id number] cc: Sarah Montoya MD EXAMINATION: MM SCREENING DIGITAL BREAST TOMOSYNTHESIS, BILATERAL CLINICAL INFORMATION: Screening. Asymptomatic. COMPARISON: Mammography: This study is compared with prior exams dating back to 2019. TECHNIQUE: Digital breast tomosynthesis is performed in both the craniocaudal and mediolateral oblique views along with computer-aided detection (CAD). Synthesized 2D images are generated from the tomosynthesis. FINDINGS: The breasts are heterogeneously dense, which may obscure small masses (ACR BI-RADS breast composition Category c). There are no significant masses, abnormal calcifications, or other abnormalities. MM/MM tomosynthesis screening BI IMPRESSION: No mammographic evidence of malignancy. ASSESSMENT: BI-RADS BI-RADS 1 - Negative RECOMMENDATION: Routine annual mammography screening. 1 year F/U This examination should not preclude the clinical evaluation of a suspicious palpable abnormality. This patient's information was entered into a reminder system with a target due date for their next mammogram. Dictated By: Lara Riggs MD Signed By: <Electronically signed by Lara Riggs MD in OV> 10/05/23 0854 DD/ 1328 TD/TT: Telecom Assistant: Procedure Note Donotuseinterpreter, Image - 10/05/2023 [facility] [address] [place], [place] [address] Mammography Report Signed Patient: Kori Levy MMR#: [id number] : 1965Acct:[id number] Age/Sex: 58 / FADM Date: 09/06/23 Loc: HO.MAMMO Attending Dr: Sarah Toney MD Ordering Physician: Sarah Montoya MDResults: 1Negative Date of Service: 09/06/23Follow Up: 1 Year From Orig inal Mammogram Procedure(s): MM tomosynthesis screening BI Accession Number(s): [id number] cc: Sarah Montoya MD EXAMINATION: MM SCREENING DIGITAL BREAST TOMOSYNTHESIS, BILATERAL CLINICAL INFORMATION: Screening. Asymptomatic. COMPARISON: Mammography: This study is compared with prior exams dating back to 2019. TECHNIQUE: Digital breast tomosynthesis is performed in both the craniocaudal and mediolateral oblique views along with computer-aided detection (CAD). Synthesized 2D images are generated from the tomosynthesis. FINDINGS: The breasts are heterogeneously dense, which may obscure small masses (ACR BI-RADS breast composition Category c). There are no significant masses, abnormal calcifications, or other abnormalities. MM/MM tomosynthesis screening BI IMPRESSION: No mammographic evidence of malignancy. ASSESSMENT: BI-RADS BI-RADS 1 - Negative RECOMMENDATION: Routine annual mammography screening. 1 year F/U This examination should not preclude the clinical evaluation of a suspicious palpable abnormality. This patient's information was entered into a reminder system with a target due date for their next mammogram. Dictated By: Lara Riggs MD Signed By: <Electronically signed by Lara Riggs MD in OV> 10/05/23 0854 DD/ 1328 TD/TT: Telecom Assistant: us Sarah Toney MD IMG BI PROCEDURES Fin al Result * Hm Colonoscopy (05/21/2020) us Historical Provider HEALTH MAINTENANCE Final Result from Last 3 Months or Most Recently Relevant to Health Maintenance Insurance [facility] C3 DENTAL-[facility] MEDICAID STAND ADULT Care Teams Charge Lpn Relationship Specialty Start Date End Date Sarah Montoya MD [address] [place], [place] [phone] PCP - General Family Medicine 02/22/18
--- OUTSIDE RECORDS SUMMARY | 2024-11-04 08:14 | XMS_ITS | Encounter Summary ---
Author Organization [employer] Address [address] [facility] 7t [place] [address] Care Team Providers Care Wood Patternmaker Apprentice Name Role Phone Sarah Montoya MD Primary Care Provide r Reason for Visit * Reason Comments Med Refill Encounter Details Date Type Department Care Team ([facility] st Contact Info) Description 12/22/2022 Refill [facility] [address] [place] [address] Sarah Montoya MD [address] [place] [address] Coccygeal pain Social History Tobacco Use Types Packs/Day Years Used Date Smoking Tobacco: Every Day Cigarettes Smokeless Tobacco: Current Depression Answer Date Recorded Patient Health Questionnaire-9 Score 0 08/01/2022 Housing Stability Answer Date Recorded What is your housing situation today? I have maged curry 12/19/[address] you li ve. Do you have problems with any of the following? None of the above 12/19/2022 Food Insecurity Answer Date Recorded Within the past 12 months, y ou worried that your food would run out before you got money to buy more: Never True 12/19/2022 Within the past 12 months,th e food you bought just didn't last and you didn't have enough money to get more: Never True 12/2022 Transportation Answer Date Recorded In the past 12 months, has l ack of transportation kept you from medical appts, meetings, work or from getting things needed for daily living? No 12/19/2022 Utilities Answer Date Recorded In the past 12 months, has t he electric, gas, oil or water company threatened to shut off services in your home? No 12/19/2022 Depression Answer Date Recorded Patient Health Questionnaire-2 Score 0 08/01/2022 Comments Unknown Sex and Gender Information Value [...] Description 11/27/2024 1:00 PM EDT Office Visit [facility] [address] [place] [phone] Sarah Montoya MD [address] [place] [address] documented as of this encounter Visit Diagnoses Diagnosis Coccygeal pain Other disorder of coccyx documented in this encounter Additional Health Concerns Assessment Noted Time PHQ-9 Depression Total Score: 0 08/02/19 23 11:32 AM EDT documented as of this encounter Care Teams Wood Patternmaker Apprentice Relationship Specialty Start Date End Date Sarah Montoya MD [address] [place] [address] PCP - General Family Medicine 02/22/18 documented as of this encounter
--- OUTSIDE RECORDS SUMMARY | 2024-11-04 08:14 | XMS_ITS | Encounter Summary ---
Author Organization [employer] Address [address] [facility] 7t [place] [address] Care Team Providers Care Black Oxide Coating Equipment Tender Name Role Phone Sarah Montoya MD Primary Care Provide r Encounter Details Date Type Department Care Team ([facility] Contact Info) Description 11/28/2022 Orders Only [facility] MEDICINE [address] [place] [phone] Provider, MD Lukasz Social History Tobacco Use Types Packs/Day Years Used Date Smoking Tobacco: Every Day Cigarettes Smokeless Tobacco: Current Depression Answer Date Recorded Patient Health Questionnaire-9 Score 0 08/01/2022 Depression Answer Date Recorded Patient Health Questionnaire-2 [...] Encounters Date Type Department Care Team (Late Contact Info) Description 11/27/2024 1:00 PM EDT Office Visit [facility] MED[facility]INE [address] [place] [phone] Sarah Montoya MD [address] [place] [phone] documented as of this encounter Procedures Procedure Name Priority Date/Time Associated Diagnosis Comments HM COLONOSCOPY Routine 05/21/2020 documented in this encounter Results * Hm Colonoscopy (05/21/2020) Historical Provider HEALTH MAINTENANCE Final Result documented in this encounter Visit Diagnoses Not on filedocumented in this encounter Additional Health Concerns Assessment Noted Time PHQ-9 Depression Total Score: 0 08/02/19 23 11:32 AM EDT documented as of this encounter Care Teams Black Oxide Coating Equipment Tender Relationship Specialty Start Date End Date Sarah Montoya MD [address] [place] [address] PCP - General Family Medicine 02/22/18 documented as of this encounter
--- OUTSIDE RECORDS SUMMARY | 2024-11-04 08:14 | XMS_ITS | Encounter Summary ---
Author Organization [employer] Address [address] [facility] 7t [place] [address] Care Team Providers Care Barrel Plater Name Role Phone Sarah Montoya MD Primary Care Provide r Encounter Details Date Type Department Care Team (Latest Contact Info) Description 11/03/2024 Travel Social History Tobacco Use Types Packs/Day Years [...] Description 11/27/2024 1:00 PM EDT Office Visit [facility] MEDICINE [address] [place] [address] Sarah Montoya MD [address] [place], [place] [phone] documented as of this encounter Visit Diagnoses Not on filedocumented in this encounter Additional Health Concerns Assessment Noted Time PHQ-9 Depression Total Score: 0 12/18/19 24 1:39 PM EDT documented as of this encounter Care Teams Barrel Plater Relationship Specialty Start Date End Date Sarah Montoya MD [address] [place] [address] [phone] PCP - General Family Medicine 02/22/18 documented as of this encounter
== END 2024-11-04 08:07 | disposition home or self-care (01) ==
LOC: HO.HHCX 08:06
PROVIDERS: PCP Internal Medicine; Visit Provider Family Medicine
DX: J45.901 Unspecified asthma with (acute) exacerbation (principal)
CPT/HCPCS: 71046

== ENCOUNTER → 2024-11-04 08:34 | Outpatient (BNV) | payer MEDICAID, SELFPAY | PROVIDERS: PCP Internal Medicine; Visit Provider Radiology Diagnostic Radiology | DX: R06.02 Shortness of breath (principal); R06.2 Wheezing | CPT/HCPCS: 71046 ==

== ENCOUNTER 2025-01-15 13:04 | Outpatient (AMB) | payer MEDICAID, SELFPAY ==
[2025-01-15 13:11] VITALS: BP 120/72; PULSE 68; BMI 25.2
--- NOTE | 2025-01-15 13:11 | A.OFFVIS_ITS ---
Vital Signs 01/15/25 13:11 Height 5 ft 2 in Weight 138 lb 0.15 oz BMI 25.2 BP 120/72 Blood Pressure Location Rt brachial Position Sitting Pulse 68 Pulse Source Monitor Intake Visit Reasons: overdue followup per pcp Large Animal Veterinarian Required: Yes Large Animal Veterinarian Name: abbey paulson [phone] Allergies aspirin (ASPIRIN) Allergy (Mild, Verified 01/15/25 13:15) SWELLING, rash, swelling Medication List - Last Reconciled 01/15/25 by Osiris Flor NP-C acetaminophen ER (Arthritis Pain Relief (acetaminophen) ER) 650 mg PO Q8H albuterol sulfate 90 mcg/actuation (Ventolin HFA) inhalation bupropion HCl SR 150 mg PO BID cholecalciferol (vitamin D3) (Vitamin D3) 50 mcg PO DAILY escitalopram oxalate 20 mg PO DAILY levothyroxine 25 mcg PO QAM mirtazapine 45 mg PO BEDTIME pantoprazole 20 mg PO DAILY quetiapine (Seroquel) 50 mg PO BEDTIME HPI HPI overdue followup per pcp: Details: Kori is a 59-year-old female with past medical history of smoking, atypical chest discomfort, left bundle branch block who presents for follow-up. Last prior visit 10/18/2023. Today she reports that she has been getting rapid heart palpitations, most days with an uncomfortable feeling around her left lower breast. She is not getting symptoms brought on by physical activities. She notices the palpitations more at rest. She has no shortness of breath, PND, orthopnea or edema. No lightheadedness, presyncope, syncope, falls. She reports good activity toleran ce. She drinks 1-2 coffees per day and a Liter of caffeinated Pepsi will last her 1-1/2 days. Takes meds as directed. Certified division chief used [facility] Medical History Tubular adenoma Hypothyroidism (acquired) GERD (gastroesophageal reflux disease) Surgical History H/O colonoscopy Hx of appendectomy Hx of hysterectomy Family History Mother HX: breast cancer Father Hx of malignant neoplasm of nasal cavity Prostate cancer Sister No problems noted. Social History Household Members: Spouse Alcohol intake: current Alcohol intake frequency: does not drink Cigarettes Per Day: 7 Years Smoked: 27 Second Hand Smoke Exposure: Yes Substance Use Type: Marijuana Current occupational status: disabled Review of Systems Const All systems reviewed & are unremarkable except as noted in HPI and below ENT Denies dizziness Card Reports chest pain, Denies chest pain at rest, Denies chest pain with activity, Reports rapid heart rate, Denies pedal edema, Denies edema, Denies leg edema, Denies lightheadedness, Reports palpitations, Denies dyspnea, Denies dyspnea on exertion and Denies orthopnea Resp Denies cough, Denies dyspnea and Denies dyspnea on exertion GI Denies hematochezia and Denies change in stool character Musc Denies abnormal gait, Denies limited range of motion, Denies muscle cramps, Denies muscle weakness, Denies numbness, Denies radiating pain into limb, Denies stiffness and Denies tingling Neuro Denies abnormal gait, Denies dizziness, Denies numbness and Denies tingling Endo Reports palpitations Physical Exam Vital Signs: Last Vital Signs Pulse 68 01/15/25 13:11 BP 120/72 01/15/25 13:11 BMI result Body Mass Index 25.2 Const General: cooperative, healthy appearing, comfortable and no acute distress Orientation/consciousness: patient oriented x3 Neck Neck: Yes normal visual inspection Resp Effort & Inspection: normal respiratory effort Auscultation: clear to auscultation bilaterally, no rales, no rhonchi and no wheezes Cardio Rate: regular rate Rhythm: regular rhythm Heart sounds: S1 normal heart sound present, S2 normal heart sound present, no gallops, no murmurs and no rubs Neuro General: patient oriented x3 Extrem General: Yes normal to inspection, No no pedal edema and No calf tenderness Psych Appearance: grossly normal Mental Status: mental status grossly normal Speech and movement: Normal speech and movement present Office Procedures EKG Details: Today, read by me, normal sinus rhythm, LBBB, rate 68, Qtc 472ms [id number], Complete Assessment & Plan Assessment & Plan (1) Palpitations: Comment: She has been experiencing palpitations 2 to 3 times a week. She is quite anxious. Code(s): R00.2 - Palpitations Category: Medical Plan: Frequent rapid heart palpitations with discomfort left lower breast edge, without pattern. Pulse regular on examination today, clinically sinus rhythm. Last echocardiogram had shown normal EF. Will update echocardiogram and obtain Holter monitor. Instructed on caffeine reduction, drink non caffeinated soda and only 1 caffeinated coffee per day. Maintain good hydration and get adequate rest. We will call her with test results. Her palpitations will likely less than once her caffeine is reduced. She is likely feeling sinus tachycardia however I am ruling out other arrhythmia. Cardiology follow-up 6 months, sooner if needed. (2) Chest pain: Comment: Noncardiac in origin and reproducible on the chest wall. Previous normal coronary CT angiogram Code(s): R07.9 - Chest pain, unspecified Category: Medical Plan: Prior reports of chest discomfort with cardiac evaluation. A CTA of the coronary arteries done on 12/27/2018 shows no evidence of hemodynamically significant coronary artery disease, EF 56%. She does have left bundle branch block on her EKGs, which is not new. She as cardiac risk factor of prior smoking, recently quit. Echocardiogram done 05/02/2023 showed EF 55-60%, impaired relaxation, grade 1 diastolic dysfunction. Currently reporting discomfort with her palpitations. Updating echo and Holter. Signs and symptoms of angina reviewed. (3) LBBB (left bundle branch block): Code(s): I44.7 - Left bundle-branch block, unspecified Category: Medical Plan: Chronic. Last EF normal. updating echo. Plan We discussed the need for a heart monitor to evaluate the palpitations and an updated cardiac ultrasound to assess heart function. I advised the patient to reduce caffeine intake as it may contribute to her symptoms. A follow-up appointment is scheduled in six months, with earlier review if test results i ndicate abnormalities. Patient Instructions: - Wear a heart monitor as instructed to track palpitations. - Obtain echocardiogram - Reduce caffeine intake, opting for low-caffeine or caffeine-free beverages. - Follow up in six months or sooner if contacted regarding test results. Patient was informed and verbally consented to the use of an ambient scribe for clinic note documentation during this visit. Visit time spent on chart review, interview, assessment, orders, documentation. Coding Level of Care Code Est Pt Level 4 (93322) Complex EM visit Add On G2211 Diagnoses Palpitations R00.2 Precordial pain R07.9 LBBB (left bundle branch block) I44.7 CPT Codes EKG - CPT: 93922-[id number], Complete ([id number]) Time Spent (min) 28
--- OUTSIDE RECORDS SUMMARY | 2025-01-15 15:58 | XMS_ITS | Encounter Summary ---
Author Organization [employer] Address [address] [facility] 7t [place] [address] Care Team Providers Care Prosthetic Aide Name Role Phone Sarah Montoya MD Primary Care Provide r Encounter Details Date Type Department Care Team ([facility] Contact Info) Description 11/28/2022 Orders Only [facility] MEDICINE [address] [place] [phone] Provider, MD Lukasz Social History Tobacco Use [...] Department Care Team (Late Contact Info) Description 02/26/2025 1:00 PM EST Office Visit [facility] MEDICINE [address] [place] [phone] Sarah Montoya MD [address] [place] [address] [phone] documented as of this encounter Procedures Procedure [...] documented as of this encounter Care Teams Prosthetic Aide Relationship Specialty Start Date End Date Sarah Montoya MD [address] [place] [address] PCP - General Family Medicine 02/22/18 documented as of this encounter
--- OUTSIDE RECORDS SUMMARY | 2025-01-15 15:58 | XMS_ITS | Encounter Summary ---
Author Organization [employer] Address [address] [facility] [address] 7t [place] [address] Care Team Providers Care Lithographic Plate Maker Apprentice Name Role Phone Sarah Montoya MD Primary Care Provide r Encounter Details Date Type Department Care Team ([facility] st Contact Info) Description 07/09/2024 Orders Only [facility] MED & PEDS [address] [place], [place] [phone] Lizzy No Social History Tobacco Use Types [...] Care Team (Late st Contact Info) Description 02/26/2025 1:00 PM EST Office Visit [facility] MEDICINE [address] [place] [phone] Sarah Montoya MD [address] [place] [phone] documented as of this encounter Procedures Procedure [...] documented as of this encounter Care Teams Lithographic Plate Maker Apprentice Relationship Specialty Start Date End Date Sarah Montoya MD [address] [place] [address] [phone] PCP - General Family Medicine 02/22/18 documented as of this encounter
--- OUTSIDE RECORDS SUMMARY | 2025-01-15 15:58 | XMS_ITS | Encounter Summary ---
Author Organization [employer] Address [address] [facility] 7t [place] [address] Care Team Providers Care Cushion Stuffer Name Role Phone Sarah Montoya MD Primary Care Provide r Reason for Visit * Reason Comments Med Refill Encounter Details Date Type Department Care Team ([facility] st Contact Info) Description 01/13/2025 Refill [facility] MEDICINE [address] [place] [address] Kalli Pink, BRYAN [address] [place] [address] Mood disorder (CMS/HCC); Mild intermittent asthma, unspecified whether complicated Social History Tobacco Use Types Packs/Day Years [...] housing situation today? I have maged curry 11/19/[address] you li ve. Do you have problems with any of the following? None of the above 11/19/2024 Food Insecurity Answer Date Recorded Within the past 12 months, y ou worried that your food would run out before you got money to buy more: Never True 11/19/2024 Within the past 12 months,th e food you bought just didn't last and you didn't have enough money to get more: Never True 12/2024 Transportation Answer Date Recorded In the past 12 months, has l ack of transportation kept you from medical appts, meetings, work or from getting things needed for daily living? No 11/19/2024 Utilities Answer Date Recorded In the past 12 months, has t he electric, gas, oil or water company threatened to shut off services in your home? No 11/19/2024 Depression Answer Date Recorded Patient Health Questionnaire-2 Score 0 12/18/2023 Internet Access Answer Date Recorded Internet Access Q1 Yes 11/19/2024 Internet Access Q2 Not on file 11/19/2024 Comments Unknown Sex and Gender Information Value [...] Description 02/26/2025 1:00 PM EST Office Visit [facility] MEDICINE [address] [place] [phone] Sarah Montoya MD [address] [place] [address] documented as of this encounter Visit Diagnoses Diagnosis Mood disorder (CMS/HCC) Unspecified episodic mood disorder Mild intermittent asthma, unspecified whether complicated documented in this encounter Additional Health Concerns Assessment Noted Time PHQ-9 Depression Total Score: 0 12/18/19 24 1:39 PM EDT documented as of this encounter Care Teams Cushion Stuffer Relationship Specialty Start Date End Date Sarah Montoya MD [address] [place] [phone] PCP - General Family Medicine 02/22/18 documented as of this encounter
--- OUTSIDE RECORDS SUMMARY | 2025-01-15 15:58 | XMS_ITS | Encounter Summary ---
Author Organization [employer] Address [address] [facility] 7t [place] [address] Care Team Providers Care Wrapper Stemmer Operator Name Role Phone Sarah Montoya MD Primary Care Provide r Reason for Visit * Reason Comments Med Refill Encounter Details Date Type Department Care Team ([facility] st Contact Info) Description 01/13/2025 Refill [facility] MEDICINE [address] [place] [address] aSrah Montoya MD [address] [place], [place] [phone] Mild intermittent asthma, unspecified whether complicated Social [...] Description 02/26/2025 1:00 PM EST Office Visit [facility] MEDICINE [address] [place] [address] Sarah Montoya MD [address] [place] [phone] documented as of this encounter Visit Diagnoses Diagnosis Mild intermittent asthma, unspecified whether complicated documented in this encounter Additional Health Concerns Assessment Noted Time PHQ-9 Depression Total Score: 0 12/18/19 24 1:39 PM EDT documented as of this encounter Care Teams Wrapper Stemmer Operator Relationship Specialty Start Date End Date Sarah Montoya MD [address] [place] [phone] PCP - General Family Medicine 02/22/18 documented as of this encounter
--- OUTSIDE RECORDS SUMMARY | 2025-01-15 15:58 | XMS_ITS | Encounter Summary ---
Author Organization [employer] Address [address] [facility] 7t [place] [address] Care Team Providers Care Orthotic Practitioner Name Role Phone Sarah Montoya MD Primary Care Provide r Reason for Visit * Reason Comments Med Refill Encounter Details Date Type Department Care Team ([facility] st Contact Info) Description 12/22/2022 Refill [facility] MEDICINE [address] [place] [address] Sarah Montoya MD [address] [place] [address] Coccygeal pain Social History Tobacco Use Types [...] 02/26/2025 1:00 PM EST Office Visit [facility] MEDICINE [address] [place] [address] Sarah Montoya MD [address] [place] [address] documented as of this encounter Visit Diagnoses Diagnosis Coccygeal pain Other disorder of coccyx documented in this encounter Additional Health Concerns Assessment Noted Time PHQ-9 Depression Total Score: 0 08/02/19 23 11:32 AM EDT documented as of this encounter Care Teams Orthotic Practitioner Relationship Specialty Start Date End Date Sarah Montoya MD [address] [place] [address] PCP - General Family Medicine 02/22/18 documented as of this encounter
--- OUTSIDE RECORDS SUMMARY | 2025-01-15 15:58 | XMS_ITS | Encounter Summary ---
Author Organization [email or web address] Address [address] [facility] 7t [place] [address] Care Team Providers Care Director [employer] Name Role Phone Sarah Montoya MD Primary Care Provide r Encounter Details Date Type Department Care Team (Late st Contact Info) Description 07/11/2022 Orders Only [facility] MED & PEDS [address] [place] [address] Samia Serrano LPN Social History Tobacco Use [...] Description 02/26/2025 1:00 PM EST Office Visit [facility] MEDICINE [address] [place] [address] Sarah Montoya MD [address] [place] [address] documented as of this encounter Visit Diagnoses Not on filedocumented in this encounter Care Teams Director [employer] Relationship Specialty Start Date End Date Sarah Montoya MD [address] [place] [phone] PCP - General Family Medicine 02/22/18 documented as of this encounter
--- OUTSIDE RECORDS SUMMARY | 2025-01-15 15:58 | XMS_ITS | Clinical Summary ---
Author Organization [employer] Address [address] [facility] [address] [place] [address] Care Team Providers Care Soaker Helper Name Role Phone Sarah Montoya MD Primary Care Provide r Allergies Active Allergy Reactions Criticality Noted Date Comments Aspirin Swelling,Hives Medium Medications QUEtiapine (SEROquel) 50 MG tablet TAKE 1 TABLET BY MOUTH DAILY AT BEDTIME 30 tablet 5 08/09/19 25 Active mirtazapine (Remeron) 45 MG tablet TAKE 1 TABLET BY MOUTH DAILY AT BEDTIME 30 tablet 5 08/09/19 25 Active levothyroxine (Synthroid, Levoxyl) 25 MCG tablet TAKE 1 TABLET BY MOUTH EVERY MORNING 90 tablet 1 09/10/19 25 Active albuterol 108 (90 Base) MCG/ACT inhalerIndication s:Mild intermittent asthma with acute exacerbation Inhale 2 puffs every 6 (six) hours if needed for wheezing. 18 g 1 11/27/19 25 Active escitalopram (Lexapro) 20 MG tabletIndications :Anxiety and depression Take 1 tablet (20 mg) by mouth Once per day. 30 tablet 2 11/28/19 25 025 Active cholecalciferol (D3 Super Strength) 50 MCG (1999 UT) capsuleIndication s:Vitamin D deficiency Take 1 capsule (50 mcg) by mouth Once per day. 90 capsule 11/28/19 25 Active acetaminophen (Tylenol 8 Hour) 650 MG ER tabletIndications :Localized osteoarthritis of hands, bilateral Take 2 tablets (1,300 mg) by mouth every 8 (eight) hours if needed for mild pain. Do not crush, chew, or split. 30 tablet 2 11/28/19 25 Active pantoprazole (ProtoNix) 20 MG EC tabletIndications :Gastroesophageal reflux disease without esophagitis TAKE 1 TABLET BY MOUTH EVERY DAY BEFORE BREAKFAST. DO NOT BREAK, CRUSH, DISSOLVE OR CHEW. 90 tablet 3 12/10/19 25 Active buPROPion SR (Wellbutrin SR) 150 MG 12 hr tabletIndications :Mood disorder (CMS/HCC) TAKE 1 TABLET BY MOUTH TWICE DAILY 180 tablet 01/15/20 25 Active albuterol 108 (90 Base) MCG/ACT inhalerIndication s:Mild intermittent asthma, unspecified whether complicated INHALE 2 PUFFS BY MOUTH EVERY 6 HOURS NEEDED FOR WHEEZING 18 g 1 01/15/20 25 Active albuterol 108 (90 Base) MCG/ACT inhalerIndication s:Mild intermittent asthma, unspecified whether complicated Inhale 2 puffs every 6 (six) hours if needed for wheezing. 18 g 1 12/18/19 24 025 Discontinued(R eorder (will not trigger notification to Pharmacy)) buPROPion SR (Wellbutrin SR) 150 MG 12 hr tabletIndications :Mood disorder (CMS/HCC) TAKE 1 TABLET BY MOUTH TWICE DAILY 180 tablet 06/19/19 25 025 Discontinued Active Problems Problem Noted Date Diagnosed Date Encounter for screening mamm ogram for malignant neoplasm of breast 11/27/2024 Chest pain 11/27/2024 Assessment & Plan (11/27/2024 4:32 PM EDT): I refer patient back to cardiology LBBB (left bundle branch block) 11/27/2024 Assessment & Plan (11/27/2024 4:32 PM EDT): I refer patient back to cardiology Palpitations 11/27/2024 Assessment & Plan (11/27/2024 4:32 PM EDT): I refer patient back to cardiology Encounter for cervical Pap smear with pelvic [...] Anxiety and depression 08/01/2022 Assessment & Plan (11/27/2024 4:34 PM EDT): I increase escitalopram to 20 mg daily continue with bupropion 150 mg every 12 hours, mirtazapine 45 mg at bedtime and Seroquel 50 mg at bedtime. In light that patient is taking a lot of medications that prolong QTc I ordered an EKG in the office her QTc is 460 and heart rate is 67 normal sinus rhythm LBBB (seen on old EKGs also) I will follow-up with patient to see how she is doing with her medications she for now declines referral to a therapist or a psychiatrist Assessment & Plan (08/01/2022 12:07 PM EDT): [...] Encounters Date Type Department Care Team Description 01/13/2025 Refill [facility] [address] [place] [address] Sarah Montoya MD Mild intermittent asthma, unspecified whether complicated 01/13/2025 Refill [facility] [address] [place] [phone] Kalli Pink NP Mood disorder ([facility]); Mild intermittent asthma, unspecified whether complicated 12/18/2024 Telephone [facility] [address] [place] [phone] Sarah Montoya MD dec recall 12/08/2024 Refill [facility] [address] [place] [phone] Sarah Montoya MD Gastroesophageal reflux disease without esophagitis 11/27/2024 1:00 PM EDT Office Visit [address] [address] Sarah Monotya MD Encounter for screening mammogram for malignant neoplasm of breast; Chest pain, unspecified type; LBBB (left bundle branch block); Palpitations; Anxiety and depression; Vitamin D deficiency; Localized osteoarthritis of hands, bilateral 11/27/2024 Travel 11/25/2024 Refill [facility] [address] [place] [phone] Sarah Montoya MD Mild intermittent asthma with acute exacerbation 11/25/2024 Refill [facility] [address] [place] [phone] Jairo Meadows MD Mild intermittent asthma with acute exacerbation 11/19/2024 Patient Outreach [facility] [address] [place] [phone] Sarah Montoya MD Pre-visit Planning (SDOH screening negative and tobacco screening positive) 11/04/2024 Results Follow-Up [facility] [address] [phone] Jairo Meadows MD XR Chest 2 Views 11/03/2024 6:20 PM EDT Office Visit [facility] [address] [address] Jairo Meadows MD Mild intermittent asthma with acute exacerbation (Primary Dx) 11/03/2024 Travel from Last 3 Months Immunizations Immunization Administration [...] the past 12 months, has t he [employer] gas, oil or water company threatened to [...] Sign Reading Time Taken Comments Blood Pressure 120/80 11/27/2024 1:01 PM EDT Pulse 80 11/27/2024 1:01 PM EDT Temperature 36.7 C (98 F) 11/27/2024 1:01 PM EDT Respiratory Rate 17 11/27/2024 1:01 PM EDT Oxygen Saturation 96% 11/27/2024 1:01 PM EDT Inhaled Oxygen Concentration - - Weight 60.9 kg (134 lb 3.2 oz) 11/27/2024 1:01 P M EDT Height 157.5 cm (5' 2 ) 11/27/2024 1:01 PM EDT Body Mass Index 24.55 11/27/2024 1:01 PM EDT Plan of Treatment Upcoming Encounters Date Type Department Care Team (Late st Contact Info) Description 02/26/2025 1:00 PM EST Office Visit [facility] [address], [place] [phone] Sarah Montoya MD [address] [place], [place] [phone] Health Maintenance Due Date Last Done Comments [...] - Td or Tdap) 01/02/2022 01/03/2012, 12/30/2004 Mammogram 09/05/2024 09/06/2023, 12/11, 09/05/2019, Additional history exists Influenza Vaccine (#1) 2024 , 01/25/2021, 02/10/2020, Additional history exists Depression Screening 12/17/2024 12/18/2023, 12/18/19 Diabetes: Hemoglobin A1C 03/20/2025 03/20/2024 Colonoscopy 05/21/2025 05/21/2020 Colorectal Cancer Screening 05/21/2025 SDOH Screening 11/19/2025 11/19/2024 Tobacco Screening 11/27/2025 11/27/2024 Dental X-Ray: Full Mouth 03/22/2027 03/21/2024 Cervical [...] Procedure Name Priority Date/Time Associated Diagnosis Comments ECG 12-LEAD Routine 11/27/2024 LBBB (left bundle branch block) Palpitations Anxiety and depression XR CHEST 2 VIEWS Routine 11/04/2024 7:58 AM EDT Mild intermittent asthma with acute exacerbation POCT INFLUENZA B (ID NOW RAPID MOLECULAR) [...] Recently Relevant to Health Maintenance Results * ECG 12 lead (11/27/2024) us Sarah Toney MD ECG ORDERABLES Final Result * XR Chest 2 Views (11/04/2024 7:58 AM EDT) Anatomical Region Laterality Modality Chest Radiographic Chandni ging 11/04/2024 7:58 AM EDT Narrative 11/04/2024 9:10 AM EDT [address] [address] XRay Report Signed Patient: Kori Levy MR#: [id number] : 1965 Acct:[id number] Age/Sex: 59 / F ADM Date: 11/04/24 [facility]: Jairo Meadows MD Ordering Physician: Jairo Meadows MD Date of Service: 11/04/24 Procedure(s): XR chest 2V Accession Number(s): [id number] cc: Sarah Montoya MD; Jairo Meadows MD EXAMINATION: XR CHEST 2 VIEWS HISTORY: Patient with 1-week duration of SOB and wheezing. COMPARISON: Comparison is made with the prior examination dated 03/31/2023. FINDINGS: PA and lateral views of the chest are submitted. There is biapical pleural thickening. The lungs are expanded and clear. There is no pleural effusion, pneumothorax, or pulmonary vascular congestion. The heart is normal in size. The bones are intact. XR/XR chest 2V IMPRESSION: No acute cardiopulmonary abnormality. Electronically signed by: Milad Avila MD 11/04/2024 09:07 AM EDT Dictated By: Milad Avila MD Signed By: <Electronically signed by Milad Avila MD in OV> 11/04/24 0907 DD/ 0758 TD/TT: 11/04/24 0849 Case Operator: Procedure Note Donotuseinterpreter, Image - 11/04/2024 [facility] [address] [place] [address] XRay Report Signed Patient: Kori Levy MMR#: [id number] : 1965Acct:[id number] Age/Sex: 59 / FADM Date: 11/04/24 [facility] Dr: Jairo Meadows MD Ordering Physician: Jairo Meadows MD Date of Service: 11/04/24 Procedure(s): XR chest 2V Accession Number(s): [id number] cc: Sarah Montoya MD; Jairo Meadows MD EXAMINATION: XR CHEST 2 VIEWS HISTORY: Patient with 1-week duration of SOB and wheezing. COMPARISON: Comparison is made with the prior examination dated 03/31/2023. FINDINGS: PA and lateral views of the chest are submitted. There is biapical pleural thickening. The lungs are expanded and clear. There is no pleural effusion, pneumothorax, or pulmonary vascular congestion. The heart is normal in size. The bones are intact. XR/XR chest 2V IMPRESSION: No acute cardiopulmonary abnormality. Electronically signed by: Milad Avila MD 11/04/2024 09:07 AM EDT Dictated By: Milad Avila MD Signed By: <Electronically signed by Milad Avila MD in OV> 11/04/24 0907 DD/ 0758 TD/TT: 11/04/24 0849 Case Operator: Jairo Meadows MD IMG XR PROCEDURES Final Result * POCT Rapid Influenza B BELL ID NOW (11/03/2024 7:23 PM EDT) Influenza B Negative Negative, Indeterminate [facility] Swab 11/03/2024 7:23 PM EDT Jairo Meadows MD POINT OF CARE TEST ENTER/EDIT OR DERABLES Final Result [facility] [address] [place] [phone] * POCT Rapid Influenza A BELL ID NOW (11/03/2024 7:23 PM EDT) Influenza A Negative Negative, Indeterminate [facility] Swab 11/03/2024 7:23 PM EDT us Jairo Meadows MD POINT OF CARE TEST ENTER/EDIT OR DERABLES Final Result [facility] [address] [place] [address] [phone] * POCT Rapid Covid-19 BELL ID NOW (11/03/2024 7:23 PM EDT) Pathologist [facility] Coronavirus Antigen PCR Negative Negative, Indeterminate, None Detected, Invalid, Specimen unsatisfactory for evaluation, Weakly Positive, 2+ Swab 11/03/2024 7:23 PM EDT us Jairo Meadows MD POINT OF CARE TEST ENTER/EDIT OR DERABLES Final Result * Hemoglobin A1c (03/20/2024 9:40 AM EST) Pathologist [facility] Hemoglobin A1c 5.7 <6.0 % [facility] Comment:Hemoglobin A1C Refer ence Range Adults: 4.8 - 6.0 % Non diabetic: < 6.0 % Goal: < 7.0 %Additional Action Suggested: > 8.0 %Note: Hemoglobin A1c results are invalid for patients with abnormal amounts of HbF. Blood transfusions may impact the HbA1c concentration in the patient sample. Estimated Average Glucose 117 mg/dL [facility] Comment:eAG = Estimated ave rage glucose which is %A1C expressed asaverage glucose, using the formula of the P4Y-LmtkqgfLrjrkpu Glucose study (ADAG), Diabetes Care, Vol.31,#8,Oct. 2007 Blood Venous blood specimen / Unknown 03/20/2024 9:40 AM EST 03/20/2024 11:23 AM EST Sarah Toney MD LAB BLOOD ORDERABLES Final Result [facility] [address] [place] [phone] * (ABNORMAL) Lipid Panel, Standard (03/20/2024 9:40 AM EST) Triglycerides 181(H) <150 mg/dL [facility] Comment:Desirable Triglyceri de: less than 150 mg/dLBorderline High Triglyceride 150-199 mg/dLHigh Triglyceride: 200-499 mg/dLVery High Triglyceride: greater than or equal to 5OO mg/dL Cholesterol 270(H) <200 mg/dL [facility] Comment:Desirable Cholestero l: less than 200 mg/dLBorderline High Cholesterol: 200-239 mg/dLHigh Cholesterol: greater than 239 mg/dL LDL Cholesterol Calculated 188(H) <100 mg/dL [facility] Comment:Desirable LDL: less than 100 mg/dLNear Optimal/Above Optimal LDL: 110- 129 mg/dLBorderline High LDL: 130-159 mg/dLHigh LDL: 160-189 mg/dLVery High LDL: greater than or equal to 190 mg/dL HDL Cholesterol 46 >40 mg/dL [facility] Comment:Desirable HDL: great er than 40 mg/dL Note: This HDL assay may give artificially low results in patients with liver disease. Blood Venous blood specimen / Unknown 03/20/2024 9:40 AM EST 03/20/2024 11:23 AM EST us Sarah Toney MD LAB BLOOD ORDERABLES Final Result [facility] [address] [place] [address] [phone] * HPV mRNA E6/E7 w/Reflex to HPV Genotypes 16, 18/45 (03/20/2024 12:00 AM EST) Historical Provider LAB CYTOLOGY ORDERABLES F inal Result * Pap Smear (03/20/2024 12:00 AM EST) Swab 03/20/2024 03/21/2024 8:5 0 AM EST [facility] - 03/27/2024 10:01 AM EST ----- ------- Name: Kori Levy Age/Sex: 58/F : 1965 Unit#: [id number] Attend Dr: Sraah Montoya MD Re03/20/[address] [facility] REF Location: HO.HHCLNP Disch: ----- ------- SPEC : [id number] RECD: 03/21/24 STATUS: KONSTANTIN ESQUEDA NUM: [id number] ESTEFANIA: 03/20/24-[address]: Sarah Montoya MD ENTERED: 03/21/24 SP TYPE: Pap Smr OT DR: ORDERED: Pap Smear Interpretation Satisfactory for evaluation. Negative for intraepithelial lesion or malignancy. HPV High Risk: Negative HPV Genotyping 16: Negative HPV Genotyping 18: Negative Clinical Information LMP: Post menopausal Previous PAP test: Normal Other surgery: Other history: Material Received ThinPrep-Cervical ----- ------- Signed (signature on file) BEN Ramirez ([facility]) 03/27/24 1001 ----- ------- END OF REPORT us Sarah Toney MD LAB CYTOLOGY ORDERABL ES Final Result [facility] [address] [place] [phone] * BI Mammogram Screening Tomosynthesis Bilateral (09/06/2023 1:28 PM EDT) Anatomical Region Laterality Modality Breast Bilateral Mammography 09/06/2023 1:28 PM EDT Narrative 10/05/2023 8:58 AM EDT [facility] [address] [place] [address] Mammography Report Signed Patient: Kori Levy MR#: [id number] : 1965 Acct:[id number] Age/Sex: 58 / F ADM Date: 09/06/23 Loc: [facility] Attending Dr: Sarah Toney MD Ordering Physician: Sarah Montoya MD Results: 1Negative Date of Service: 09/06/23 Follow Up: 1 Year From Orig inal Mammogram Procedure(s): MM tomosynthesis screening BI Accession Number(s): [id number] cc: Sarah Montoya MD EXAMINATION: MM SCREENING [...] in OV> 10/05/23 0854 DD/ 1328 TD/TT: Case Operator: Procedure Note Donotuseinterpreter, Image - 10/05/2023 [facility] [address] [place] [address] Mammography Report Signed Patient: Kori Levy [facility]#: [id number] : 1965Acct:[id number] Age/Sex: 58 / FADM Date: 09/06/23 Loc: HO.MAMMO Attending Dr: Sarah Toney MD Ordering Physician: Sarah Montoya MDResults: 1Negative Date of Service: 09/06/23Follow Up: 1 Year From Orig ina Mammogram Procedure(s): MM tomosynthesis screening BI Accession Number(s): [id number] cc: Sarah Montoya MD EXAMINATION: MM SCREENING [...] in OV> 10/05/23 0854 DD/ 1328 TD/TT: Case Operator: Sarah Toney MD IMG BI PROCEDURES Fin al Result * Hm Colonoscopy (05/21/2020) Historical Provider HEALTH MAINTENANCE Final Result from Last 3 Months or Most Recently Relevant to Health Maintenance Insurance [address] [place] [phone] [facility] C3 [facility] MEDICAID STAND ADULT [address] [place] [phone] Care Teams Soaker Helper Relationship Specialty Start Date End Date Sarah Montoya MD [address] [place] [phone] PCP - General Family Medicine 02/22/18
== END 2025-01-15 13:46 | disposition home or self-care (01) ==
LOC: HO.HCS 13:05
PROVIDERS: PCP Internal Medicine; Visit Provider Nurse Practitioner Family
DX: R00.2 Palpitations (principal); R07.9 Chest pain, unspecified; I44.7 Left bundle-branch block, unspecified
CPT/HCPCS: 93010; 99214

== ENCOUNTER → 2025-01-15 13:04 | Outpatient (BNVA) | payer MEDICAID, SELFPAY | PROVIDERS: PCP Internal Medicine; Visit Provider Nurse Practitioner Family | DX: R00.2 Palpitations (principal); R07.9 Chest pain, unspecified; I44.7 Left bundle-branch block, unspecified | CPT/HCPCS: 93005; 99212 ==

== ENCOUNTER 2025-01-21 14:01 | Outpatient (REF) | payer MEDICAID, SELFPAY ==
--- NOTE | ~2025-01-21 | MM_ITS ---
EXAMINATION: MM SCREENING DIGITAL BREAST TOMOSYNTHESIS, BILATERAL CLINICAL INFORMATION: Screening. Asymptomatic. COMPARISON: Mammography: Comparison is made with available priors TECHNIQUE: Digital breast mammography with tomosynthesis is performed in both the craniocaudal and mediolateral oblique views along with computer-aided detection (CAD). FINDINGS: The breasts are heterogeneously dense, which may obscure small masses. Right: Asymmetry retroareolar region/lateral breast posterior depth on CC view. No suspicious calcifications or other abnormal findings. Left: There are no significant masses, abnormal calcifications, or other abnormalities. MM/MM tomosynthesis screening BI IMPRESSION: Additional imaging is recommended ASSESSMENT: BI-RADS Category 0: Incomplete - Need additional Imaging Evaluation RECOMMENDATION: 1. Additional views of the right breast. 2. Targeted ultrasound if warranted after review of the additional views. 3. Radiology department staff will contact the patient for additional imaging. Additional Imaging required Electronically signed by: Alivia Harman DO 01/22/2025 08:56 AM PARUL
--- OUTSIDE RECORDS SUMMARY | 2025-01-21 17:17 | XMS_ITS | Encounter Summary ---
Author Organization [employer] Address [address] [facility] 7t [place] [address] Care Team Providers Care Sea Shell Gatherer Name Role Phone Sarah Montoya MD Primary Care Provide r Encounter Details Date Type Department Care Team ([facility] Contact Info) Description 11/28/2022 Orders Only [facility] [address] [place] [phone] Provider, MD Lukasz Social History Tobacco Use [...] Description 02/26/2025 1:00 PM EST Office Visit [facility] [address] [place] [phone] Sarah Montoya MD [address] [place] [address] [phone] documented as of this encounter Procedures Procedure [...] documented as of this encounter Care Teams Sea Shell Gatherer Relationship Specialty Start Date End Date Sarah Montoya MD [address] [place] [address] PCP - General Family Medicine 02/22/18 documented as of this encounter
--- OUTSIDE RECORDS SUMMARY | 2025-01-21 17:17 | XMS_ITS | Clinical Summary ---
Author Organization [employer] Address [address] [facility] 7t [place] [address] Care Team Providers Care Associate Chemist Name Role Phone Sarah Montoya MD Primary [...] Type Department Care Team Description 01/13/2025 Refill [facility] [address] [place] [address] Sarah Montoya MD Mild intermittent asthma, unspecified whether complicated 01/13/2025 Refill [facility] [address] [place] [phone] Kalli Pink NP Mood disorder ([facility]); Mild intermittent asthma, unspecified whether complicated 12/18/2024 Telephone [facility] [address] [place] [phone] Sarah Montoya MD dec recall 12/08/2024 Refill [facility] [address] [place] [address] Sarah Montoya MD Gastroesophageal reflux disease without esophagitis 11/27/2024 1:00 PM EDT Office Visit [address] [address] Sarah Montoya MD Encounter for screening mammogram for malignant neoplasm of breast; Chest pain, unspecified type; LBBB (left bundle branch block); Palpitations; Anxiety and depression; Vitamin D deficiency; Localized osteoarthritis of hands, bilateral 11/27/2024 Travel 11/25/2024 Refill [facility] [address] [place] [phone] Sarah Montoya MD Mild intermittent asthma with acute exacerbation 11/25/2024 Refill [facility] [address] [place] [address] Jairo Meadows MD Mild intermittent asthma with acute exacerbation 11/19/2024 Patient Outreach [facility] [address] [place] [phone] Sarah Montoya MD Pre-visit Planning (SDOH screening negative and tobacco screening positive) 11/04/2024 Results Follow-Up [facility] [address] [address] Jairo Meadows MD XR Chest 2 Views 11/03/2024 6:20 PM EDT Office Visit [facility] [address] [address] Jairo Meadows MD Mild intermittent asthma with [...] the past 12 months, has t he [employer], gas, oil or water company threatened to [...] 02/26/2025 1:00 PM EST Office Visit [facility] [address] [place], [place] [phone] Sarah Montoya MD [address] [place], [place] [phone] Health Maintenance Due Date Last Done Comments [...] AM EDT Narrative 11/04/2024 9:10 AM EDT [address] [address] XRay Report Signed Patient: Kori Levy MR#: [id number] : 1965 Acct:[id number] Age/Sex: 59 / F ADM Date: 11/04/24 [facility]: Jairo Meadows MD Ordering Physician: Jairo Meadows MD Date of Service: 11/04/24 Procedure(s): XR chest 2V Accession Number(s): [id number] cc: Sarah Montoya MD; Jairo Meadows MD [...] 11/04/24 0907 DD/ 0758 TD/TT: 11/04/24 0849 Storage Management Architect: Procedure Note Donotuseinterpreter, Image - 11/04/2024 [facility] [address] [place] [address] XRay Report Signed Patient: Kori Levy MMR#: [id number] : 1965Acct:[id number] Age/Sex: 59 / FADM Date: 11/04/24 [facility]ending Dr: Jairo Meadows MD Ordering Physician: Jairo Meadows MD Date of Service: 11/04/24 Procedure(s): XR chest 2V Accession Number(s): [id number] cc: Sarah Montoya MD; Jairo Meadows MD [...] 11/04/24 0907 DD/ 0758 TD/TT: 11/04/24 0849 Storage Management Architect: Jairo Meadows MD IMG XR PROCEDURES Final Result * POCT Rapid Influenza B BELL ID NOW (11/03/2024 7:23 PM EDT) Influenza B Negative Negative, Indeterminate [facility] Swab 11/03/2024 7:23 PM EDT Jairo Meadows MD POINT OF CARE TEST ENTER/EDIT OR DERABLES Final Result [facility] [address] [place] [phone] * POCT Rapid Influenza A BELL ID NOW (11/03/2024 7:23 PM EDT) Influenza A Negative Negative, Indeterminate [facility] Swab 11/03/2024 7:23 PM EDT us Jairo Meadows MD POINT OF CARE TEST ENTER/EDIT OR DERABLES Final Result [facility] [address] [place] [address] [phone] * POCT Rapid Covid-19 BELL ID NOW (11/03/2024 7:23 PM EDT) Pathologist [facility] Coronavirus Antigen PCR Negative Negative, Indeterminate, None Detected, Invalid, Specimen unsatisfactory for evaluation, Weakly Positive, 2+ Swab 11/03/2024 7:23 PM EDT us Jairo Meadows MD POINT OF CARE TEST ENTER/EDIT OR DERABLES Final Result * Hemoglobin A1c (03/20/2024 9:40 AM EST) Pathologist [facility] Hemoglobin A1c 5.7 <6.0 % [facility] Comment:Hemoglobin A1C Refer ence Range Adults: 4.8 - 6.0 % Non diabetic: < 6.0 % Goal: < 7.0 %Additional Action Suggested: > 8.0 %Note: Hemoglobin A1c results are invalid for patients with abnormal amounts of HbF. Blood transfusions may impact the HbA1c concentration in the patient sample. Estimated Average Glucose 117 mg/dL [facility] Comment:eAG = Estimated ave rage glucose which is %A1C expressed asaverage glucose, using the formula of the I5D-SckduzpDgrnhkf Glucose study (ADAG), Diabetes Care, Vol.31,#8,Oct. 2007 Blood Venous blood specimen / Unknown 03/20/2024 9:40 AM EST 03/20/2024 11:23 AM EST Sarah Toney MD LAB BLOOD ORDERABLES Final Result [facility] [address] [place] [address] [phone] * (ABNORMAL) Lipid Panel, Standard (03/20/2024 9:40 AM EST) Triglycerides 181(H) <150 mg/dL [facility] Comment:Desirable Triglyceri de: less than 150 mg/dLBorderline High Triglyceride 150-199 mg/dLHigh Triglyceride: 200-499 mg/dLVery High Triglyceride: greater than or equal to 5OO mg/dL Cholesterol 270(H) <200 mg/dL [facility] Comment:Desirable Cholestero l: less than 200 mg/dLBorderline High Cholesterol: 200-239 mg/dLHigh Cholesterol: greater than 239 mg/dL LDL Cholesterol Calculated 188(H) <100 mg/dL [facility] Comment:Desirable LDL: less than 100 mg/dLNear Optimal/Above Optimal LDL: 110- 129 mg/dLBorderline High LDL: 130-159 mg/dLHigh LDL: 160-189 mg/dLVery High LDL: greater than or equal to 190 mg/dL HDL Cholesterol 46 >40 mg/dL [facility] Comment:Desirable HDL: great er than 40 mg/dL Note: This HDL assay may give artificially low results in patients with liver disease. Blood Venous blood specimen / Unknown 03/20/2024 9:40 AM EST 03/20/2024 11:23 AM EST us Sarah Toney MD LAB BLOOD ORDERABLES Final Result [facility] [address] [place] [address] [phone] * HPV mRNA E6/E7 w/Reflex to HPV Genotypes 16, 18/45 (03/20/2024 12:00 AM EST) Historical Provider LAB CYTOLOGY ORDERABLES F inal Result * Pap Smear (03/20/2024 12:00 AM EST) Swab 03/20/2024 03/21/2024 8:5 0 AM EST [facility] - 03/27/2024 10:01 AM EST ----- ------- Name: Kori Levy Age/Sex: 58/F : 1965 Unit#: [id number] Attend Dr: Sarah Montoya MD Re03/20/24 Status: [facility] REF Location: HO.HHCLNP Disch: ----- ------- SPEC : [id number] RECD: 03/21/24 STATUS: KONSTANTIN ESQUEDA NUM: [id number] ESTEFANIA: 03/20/24-[address]: Sarah Montoya MD [...] ------- Signed (signature on file) BEN Ramirez ([facility]) 03/27/24 1001 ----- ------- END OF REPORT us Sarah Toney MD LAB CYTOLOGY ORDERABL ES Final Result [facility] [address] [place] [address] [phone] * BI Mammogram Screening Tomosynthesis Bilateral (09/06/2023 1:28 PM EDT) Anatomical Region Laterality Modality Breast Bilateral Mammography 09/06/2023 1:28 PM EDT Narrative 10/05/2023 8:58 AM EDT [facility] [address] [place] [address] Mammography Report Signed Patient: Kori Levy MR#: [id number] : 1965 Acct:[id number] Age/Sex: 58 / F ADM Date: 09/06/23 Loc: [facility] Attending Dr: Sarah Toney MD Ordering Physician: Sarah Montoya MD Results: 1Negative Date of Service: 09/06/23 Follow Up: 1 Year From Orig inal Mammogram Procedure(s): MM tomosynthesis screening BI Accession Number(s): [id number] cc: Sarah Montoya MD EXAMINATION: MM SCREENING [...] in OV> 10/05/23 0854 DD/ 1328 TD/TT: Storage Management Architect: Procedure Note Donotuseinterpreter, Image - 10/05/[facility] [address] [place] [address] Mammography Report Signed Patient: Kori Levy [facility]#: [id number] : 1965Acct:[id number] Age/Sex: 58 / FADM Date: 09/06/23 Loc: HO.MAMMO Attending Dr: Sarah Toney MD Ordering Physician: Sarah Montoya MDResults: 1Negative Date of Service: 09/06/23Follow Up: 1 Year From Orig ina Mammogram Procedure(s): MM tomosynthesis screening BI Accession Number(s): [id number] cc: Sarah Montoya MD EXAMINATION: MM SCREENING [...] in OV> 10/05/23 0854 DD/ 1328 TD/TT: Storage Management Architect: Sarah Toney MD IMG BI PROCEDURES Fin al Result * Hm Colonoscopy (05/21/2020) Historical Provider HEALTH MAINTENANCE Final Result from Last 3 Months or Most Recently Relevant to Health Maintenance Insurance [address] [place] [id number] [facility] C3 DENTAL-[facility] MEDICAID STAND ADULT [address] [place] [id number] Care Teams Associate Chemist Relationship Specialty Start Date End Date Sarah Montoya MD [address] [place] [phone] PCP - General Family Medicine 02/22/18
--- OUTSIDE RECORDS SUMMARY | 2025-01-21 17:17 | XMS_ITS | Encounter Summary ---
Author Organization [employer] Address [address] [facility] 7t [place] [address] Care Team Providers Care Electrical Mechanical Technician Name Role Phone Sarah Montoya MD Primary Care Provide r Encounter Details Date Type Department Care Team (Late st Contact Info) Description 07/11/2022 Orders Only [facility] [address] [place] [address] Samia Serrano LPN Social History Tobacco Use [...] Description 02/26/2025 1:00 PM EST Office Visit [facility] [address] [place] [address] Sarah Montoya MD [address] [place] [address] documented as of this encounter Visit Diagnoses Not on filedocumented in this encounter Care Teams Electrical Mechanical Technician Relationship Specialty Start Date End Date Sarah Montoya MD [address] [place] [phone] PCP - General Family Medicine 02/22/18 documented as of this encounter
--- OUTSIDE RECORDS SUMMARY | 2025-01-21 17:17 | XMS_ITS | Encounter Summary ---
Author Organization [employer] Address [address] [facility] [address] [place] [address] Care Team Providers Care Fourdrinier Wire Weaver Name Role Phone Sarah Montoya MD Primary Care Provide r Reason for Visit * Reason Comments Med Refill Encounter Details Date Type Department Care Team ([facility] st Contact Info) Description 12/22/2022 Refill [facility] [address] [place] [address] Sarah Montoya MD [address] [place] [address] Coccygeal pain Social History Tobacco Use Types [...] Description 02/26/2025 1:00 PM EST Office Visit [facility] [address] [place] [address] Sarah Montoya MD [address] [place] [address] documented as of this encounter Visit Diagnoses Diagnosis Coccygeal pain Other disorder of coccyx documented in this encounter Additional Health Concerns Assessment Noted Time PHQ-9 Depression Total Score: 0 08/02/19 23 11:32 AM EDT documented as of this encounter Care Teams Fourdrinier Wire Weaver Relationship Specialty Start Date End Date Sarah Montoya MD [address] [place] [phone] PCP - General Family Medicine 02/22/18 documented as of this encounter
--- OUTSIDE RECORDS SUMMARY | 2025-01-21 17:17 | XMS_ITS | Encounter Summary ---
Author Organization [employer] Address [address] [facility] [address] [place] [address] Care Team Providers Care Software Application Tester Name Role Phone Sarah Montoya MD Primary Care Provide r Encounter Details Date Type Department Care Team ([facility] st Contact Info) Description 07/09/2024 Orders Only [facility] [address] [place], [place] [phone] Lizzy No Social History Tobacco Use Types [...] 1:00 PM EST Office Visit [facility] [address] [place] [phone] Sarah Montoya MD [address] [place] [address] documented as of this encounter Procedures Procedure [...] documented as of this encounter Care Teams Software Application Tester Relationship Specialty Start Date End Date Sarah Montoya MD [address] [place] [phone] PCP - General Family Medicine 02/22/18 documented as of this encounter
== END 2025-01-21 14:02 | disposition home or self-care (01) ==
LOC: HO.MAMMO 14:01
PROVIDERS: PCP Internal Medicine; Visit Provider Internal Medicine
DX: Z12.31 Encounter for screening mammogram for malignant neoplasm of breast (principal)
CPT/HCPCS: 77063; 77067

== ENCOUNTER → 2025-01-21 14:45 | Outpatient (BNV) | payer MEDICAID, SELFPAY | PROVIDERS: PCP Internal Medicine; Visit Provider Internal Medicine | DX: Z12.31 Encounter for screening mammogram for malignant neoplasm of breast (principal) | CPT/HCPCS: 77063; 77067 ==

== ENCOUNTER → 2025-02-13 08:02 | Outpatient (REF) | payer MEDICAID, SELFPAY ==
--- NOTE | 2025-02-13 08:05 | CA_ITS ---
Transthoracic Echocardiogram Patient (Last, First, Middle): Kori Levy M Gender: F Date of : 1965 Age: 59 Procedure Date: 02/13/2025 Procedure Type: Transthoracic Echocardiogram Location: OP Height: 157.48 cm Weight: 62.6 kg BSA: 1.63 m2 Heart Rate: 68 bpm BP: 128 / 80 mmHg Linux Developer: RAYMOND Referring MD: Osiris Flor AUTOMOTIVE BRAKE TECHNICIAN-C Symptoms: R00.2 - Palpitations Study Quality: Adequate ECG Rhythm: Sinus Conclusions: - The left ventricular systolic function is normal. The visually estimated ejection fraction is between 55-60%. - No obvious valvular pathology seen on this study. Findings Left Ventricle Normal left ventricular cavity size. There is normal left ventricular wall thickness. The left ventricular systolic function is normal. The visually estimated ejection fraction is between 55-60%. There is no evidence of regional wall motion abnormalities. Diastolic function is normal for age. Right Ventricle Normal right ventricular cavity size and systolic function. Atria Both atria are normal in size. Aortic Valve There is a normal trileaflet aortic valve. There is no aortic valve stenosis. There is no aortic valve regurgitation. Mitral Valve The mitral valve appears normal. There is trace mitral valve regurgitation. There is no mitral valve stenosis. Pulmonic Valve The pulmonic valve is likely normal. Tricuspid Valve There is trace tricuspid valve regurgitation. There is no evidence of pulmonary hypertension. Great Vessels The asc aorta is normal in size. Venous The inferior vena cava is normal in size and collapses greater than 50% with inspiration. Pericardium/Pleural There is no evidence of pericardial effusion. Prior Study Comparison No significant change compared to prior study dated: 05/02/2023. Recommendations, Care & Conclusions No obvious valvular pathology seen on this study. Measurements 2D Linear Measurements IVSd: 0.78 0.6-0.9/0.6-1.0 cm LVIDd: 3.97 3.9-5.3/4.2-5.9 cm LVIDd Index: 2.44 2.4-3.2/2.2-3.1 cm/m2 LVIDs: 2.70 2.0-3.6 cm LVPWd: 0.90 0.7-1.1 cm LA Diam: 3.00 2.7-3.8/3.0-4.0 cm LAIDs Index: 1.84 1.5-2.3 cm/m2 LV Mass: 123.10 67-162/88-224 g LV Mass Index: 75.52 43-95/49-115 g/m2 LVOT Diam: 1.90 3.0+(-)1.3 cm 2D Systolic Function EF 4C: 61.10 >55% EF 2C: 57.30 >55% EF BiP: 59.70 >55% Mitral Valve MV Pk E: 0.66 MV PK A: 0.83 MV Decel Time: 262.00 E/A: 0.80 E'Lateral: 7.62 E'Medial: 6.42 E/E' Med: 10.30 E/E' Lat: 8.70 PHT: 77.00 MVA PHT: 2.86 Decel [place]: 2.51 Aortic Valve AoV Pk Socrates: 1.47 AoV Mn Socrates: 1.01 AoV VTI: 0.32 AoV Pk Grad: 9.00 Aov Mn Grad: 5.00 MARY Cont.VTI: 2.17 LVOT LVOT Pk Socrates: 1.27 LVOT Mn Socrates: 0.81 LVOT VTI: 0.24 LVOT Pk Grad: 6.00 LVOT Mn Grad: 3.00 LVOT Diam: 1.90 LVOT Area: 2.84 Diastolic Function MV Pk E: 0.66 MV Pk A: 0.83 E/A: 0.80 E'Medial: 6.42 E/E' Med: 10.30 E' Laterial: 7.62 E/E' Lat: 8.70 Right Ventricle TAPSE (mm): 23.00 TVS' Socrates: 10.10 Tricuspid Valve TR Pk Socrates: 1.77 TR Pk Grad: 13.00 RA Press: 3.00 RVSP: 16.00 Great Vessels Aorta Sinus of Valsalva: 2.80 2.0-3.5 cm Ao Asc: 2.50 2.1-3.4 cm Pulmonary Veins Pulm Vein S/D 1.10 Pulmonary Valve PV Pk Socrates: 0.81 Peak PV Grad: 3.00 Updated in Other Vendor System with Status of Final Raphael Kirkland MD electronically signed on 02/14/2025 2:33:59 PM with status of Final
== END ==
LOC: HO.CARD 08:02
PROVIDERS: PCP Internal Medicine; Visit Provider Nurse Practitioner Family
DX: R00.2 Palpitations (principal); R07.9 Chest pain, unspecified; I44.7 Left bundle-branch block, unspecified
CPT/HCPCS: 93225; 93306

== ENCOUNTER → 2025-02-13 08:05 | Outpatient (BNV) | payer MEDICAID, SELFPAY | PROVIDERS: PCP Internal Medicine; Visit Provider Internal Medicine | DX: R00.2 Palpitations (principal) | CPT/HCPCS: 93306 ==